=== PATIENT | female | born 1970 | race Caucasian/White ===

== ENCOUNTER → 2017-01-16 | Outpatient (CLI) | payer BC ==
[~2017-01-16] MED LIST: ESCI10TA17 PO; LORA-741 PO
[2017-01-16 14:39] LABS: BASO ABS # 0.08 K/uL (0-0.2); COMPLETE YES; EOS % 3.3 %; HEMATOCRIT 40.3 % (37-47); IG% 0.3 %; LYMPH % 27.1 %; LYMPH ABS # 2.14 K/uL (1.2-3.4); MEAN CELL VOLUME 92.2 fL (80-100); MEAN CORPUSCULAR HEMOGLOBIN 31.1 pg (25-34); MEAN CORPUSCULAR HGB CONC 33.7 g/dl (32-36); MEAN PLATELET VOLUME 10.1 fL (7.4-10.4); MONO % 6.5 %; NEUT % 61.8 %; PLATELET COUNT 332 K/uL (130-400); RED BLOOD COUNT 4.37 M/uL (4.2-5.4); WHITE BLOOD COUNT 7.89 K/uL (4.8-10.8)
[2017-01-16 14:48] LABS: ALT/SGPT 26 U/L (12-78); BLOOD UREA NITROGEN 12 mg/dl (7-18); BUN/CREATININE RATIO 14.3 (10-20); CALCIUM 9.3 mg/dl (8.5-10.1); CARBON DIOXIDE 31 mmol/L (21-32); CHLORIDE 106 mmol/L (98-107); CREATININE 0.87 mg/dl (0.60-1.20); GLUCOSE 97 mg/dl (70-99); POTASSIUM 3.5 mmol/L (3.5-5.1); SODIUM 143 mmol/L (136-145)
[2017-01-16 14:58] LABS: ALB/GLOB RATIO 0.9 (0.9-2); ALKALINE PHOSPHATASE 89 U/L (45-117); AST/SGOT 20 U/L (15-37); FERRITIN 39.1 ng/ml (8.0-388.0); PHOSPHORUS 3.6 mg/dl (2.5-4.9); THYROID STIMULATING HORMONE 0.928 uIu/ml (0.300-4.500)
--- NOTE | 2017-01-22 13:25 | CODING QUERY MEDICAL NECESSITY ---
SUPPORTING DIAGNOSIS NEEDED A supporting diagnosis is required for the test/procedure performed on this patient in order for us to be reimbursed by the patient's insurance. Please provide a supporting diagnosis for the following test/procedure listed below next to the test name along with your signature. *If there is no additional diagnosis for this patient that would support the following test/procedure please document that below next to the test/procedure. Test(s)/Procedure(s) that require a supporting diagnosis: DOS 01/16 * Vitamin D DIAGNOSIS: * Iron DIAGNOSIS: Provider Signature: Date: Thank you Tisha Mendoza Health Information Management Once completed, please kindly fax back to [phone] For questions please call [phone]
== END | disposition home or self-care (01) ==
LOC: C.LABBC 12:08
PROVIDERS: ATTEND Internal Medicine Geriatric Medicine
DX: R53.83 Other fatigue (principal)

== ENCOUNTER → 2017-02-13 | Outpatient (CLI) | payer BC ==
--- NOTE | 2017-02-13 10:16 | DIAGNOSTIC IMAGING REPORT ---
ULTRASOUND ABDOMEN COMPLETE CLINICAL HISTORY: Generalized abdominal pain. COMPARISON STUDY: Abdominal ultrasound dated 12/23/2014. TECHNIQUE: Real-time, grayscale, and color flow sonography of the abdomen was performed. Images are reviewed in the transverse and longitudinal planes. FINDINGS: Liver: The liver is normal in size and slightly heterogeneous in echotexture. There is no intrahepatic biliary ductal dilatation. The main portal vein is patent. Gallbladder: The gallbladder is normal in appearance. No gallstones are identified. There is no gallbladder wall thickening or pericholecystic fluid. A sonographic Hughes's sign is reportedly absent. The common bile duct measures up to 0.4 cm in diameter. Pancreas: Visualized portions of the pancreatic head and body are normal in appearance. Spleen: The spleen is normal in size and echotexture, measuring 11.3 cm in length. Kidneys: The kidneys are normal in size and echotexture. There is no hydronephrosis. The right kidney measures 10.2 cm in length and the left kidney measures 11.2 cm in length. No shadowing calculi are identified. Abdominal vasculature: Visualized portions of the abdominal aorta and IVC are normal in appearance. Ascites: None. IMPRESSION: Unremarkable sonographic assessment of the abdomen. Electronically signed by: Ibrahima Montaño M.D. 02/13/2017 10:14 AM Dictated Date/Time: 02/13/2017 10:13 AM
== END | disposition home or self-care (01) ==
LOC: C.ULTR 09:21
PROVIDERS: ATTEND Internal Medicine Geriatric Medicine
DX: R10.9 Unspecified abdominal pain (principal)

== ENCOUNTER → 2017-09-11 | Outpatient (CLI) | payer BC ==
--- NOTE | 2017-09-11 15:31 | MAMMOGRAPHY REPORT ---
BILATERAL DIGITAL SCREENING MAMMOGRAM TOMOSYNTHESIS WITH CAD: 09/11/2017 CLINICAL HISTORY: Routine screening. TECHNIQUE: Breast tomosynthesis in addition to standard 2D mammography was performed. Current study was also evaluated with a Computer Aided Detection (CAD) system. COMPARISON: Comparison is made to exams dated: 05/16/2016 mammogram, 01/06/2015 mammogram, 11/05/2013 m ammogram, 08/27/2012 mammogram, 05/15/2010 mammogram, and 11/30/2013 mammogram - [facility]. BREAST COMPOSITION: The tissue of both breasts is almost entirely fatty. FINDINGS: No suspicious masses, calcifications, or areas of architectural distortion are noted in ei ther breast. There has been no significant interval change compared to prior exams. IMPRESSION: ACR BI-RADS CATEGORY 1: NEGATIVE There is no mammographic evidence of malignancy. A 1 year screening mammogram is recommended. The pa tient will receive written notification of the results. Approximately 10% of breast cancers are not detected with mammography. A negative mammographic report should not delay biopsy if a clinically suggestive mass is present. Jaimee Mireles M.D. /:09/11/2017 14:39:46 Business Development Analyst: Heydi BETTS(Floresita)(M), [facility] letter sent: Normal 1/2 BI-RADS Code: ACR BI-RADS Category 1: Negative
== END | disposition home or self-care (01) ==
LOC: C.MAMM 11:07
PROVIDERS: ATTEND Internal Medicine Geriatric Medicine
DX: Z12.31 Encounter for screening mammogram for malignant neoplasm of breast (principal)

== ENCOUNTER 2024-06-14 02:04 | Inpatient (IN) ==
[2024-06-14] MEDS: FAMOTIDINE 20MG IV PUSH 20 MG/5 ML SYR IV STA (02:43)
[2024-06-14] MEDS: MoRPHine SULFATE 4 MG/ML 1 ML CARP\\VIAL IV STA (02:43)
[2024-06-14 03:10] LABS: Basophils # (auto) 0.07 K/uL (0.00-0.20); Basophils % (auto) 0.9 %; Eosinophils # (auto) 0.28 K/uL (0.00-0.50); Eosinophils % (auto) 3.4 %; Hemoglobin 13.6 g/dl (12.0-16.0); Immature Granulocytes # (auto) 0.02 K/uL (0.01-0.20); Immature Granulocytes % (auto) 0.2 %; Lymphocytes # (auto) 2.24 K/uL (1.20-3.40); Lymphocytes % (auto) 27.6 %; Mean Corpuscular Hgb Conc 33.2 g/dL (32.0-36.0); Mean Corpuscular Volume 93.4 fL (80.0-100.0); Mean Platelet Volume 10.1 fL (9.4-12.4); Monocytes # (auto) 0.43 K/uL (0.11-0.59); Monocytes % (auto) 5.3 %; Neutrophils # (auto) 5.09 K/uL (1.40-6.50); Neutrophils % (auto) 62.6 %; Platelet Count 242 K/uL (130-400); RDW Coefficient of Variation 12.3 % (11.5-14.5); RDW Standard Deviation 42.9 fL (36.4-46.3); Red Blood Count 4.39 M/uL (4.20-5.40); White Blood Count 8.13 K/ul (4.8-10.8)
[2024-06-14 03:21] LABS: Albumin Globulin Ratio 1.4 (0.9-2); Albumin Level 4.2 gm/dl (3.4-5.0); BUN Creatinine Ratio 10.3 (10-20); Bilirubin,Total 0.6 mg/dl (0.2-1.0); Creatinine Clr Calc Pharmacy 90.8 ml/min; Est GFR (African American) 88.2 ml/min; Est GFR (Non-African American) 76.1 ml/min; Globulin 2.9 gm/dl (2.5-4.0); Potassium 2.9 mmol/L (3.5-5.1); Total Protein 7.1 gm/dl (6.0-8.3)
[2024-06-14] MEDS: POTASSIUM CHLORIDE CRTAB 20 MEQ TABCR PO STA ×2 (03:40→05:46)
[2024-06-14 03:47] LABS: D Dimer 2390 ug/L FEU (0-500)
[2024-06-14 03:52] LABS: Troponin I High Sensitivity 303.7 pg/ml (0-14)
--- NOTE | 2024-06-14 04:02 | Emergency Department Note ---
Impression & Plan Non-ST elevated myocardial infarction (non-STEMI), Syncope, Morbid obesity with body mass index (BMI) of 40.0 or higher ED Provider Note CHIEF COMPLAINT: chest pain HISTORY OF PRESENT ILLNESS: This 53 yo female patient with past medical history of metabolic syndrome, hypertriglyceridemia, prediabetes, hypertension, trigeminal neuralgia, anxiety, obesity presents to the emergency department with complaints of substernal chest pressure. Patient states the pain radiates to her mid back. She had some discomfort down the left arm as well. Patient states she was just lying in bed when the symptoms began. She took 4 baby aspirin prior to coming to the hospital. She did get a nitroglycerin spray with a subsequent syncopal episode in the ambulance. Patient's heart rate and blood pressure dropped and EMS then administered 1 mg of atropine with improvement. Patient states she feels well at this time however some CP remains. patient admits she has had a very stressful week. She was babysitting her 2 young grandson children that are 6 months and 3 years while the parents were on vacation. She does have an autistic son with OCD at home with her as well. She also states she had a burger and fries for lunch just prior to the onset of symptoms. She does still have her gallbladder. REVIEW OF SYSTEMS: A review of systems was performed with positives and pertinent negatives listed in the history of present illness. 10 systems were reviewed and are otherwise negative. ALLERGIES: see below MEDICATIONS: see below PMH: see below SOCIAL HISTORY: see below DDx: Acute coronary syndrome, GERD, peptic ulcer disease, pancreatitis, cholecystitis among others. PHYSICAL EXAM: Vital signs reviewed. General: Well-appearing 53-year-old female, in no significant distress. HEENT: No scleral icterus, PERRLA, neck supple. moist mucous membranes Cardiovascular: Regular rate and rhythm, no extra sounds. Pulmonary: Clear to auscultation bilaterally, normal work of breathing. Abdomen: Soft, obese, nontender, nondistended, positive bowel sounds. Musculoskeletal: Atraumatic, no peripheral edema. Neurologic: Patient awake alert and oriented x 3, speech is clear Skin: Warm, dry, no rash EMERGENCY DEPARTMENT COURSE/MDM: this patient was evaluated and appeared to be in no significant distress. IV access was obtained and laboratory work was drawn. Patient did receive aspirin prior to EMS arrival, and then 1 nitroglycerin spray with a subsequent syncopal episode. She was given atropine which likely explains her tachycardia at this time. Laboratory work is significant for an elevation of the high-sensitivity troponin at 303.7 as well as elevated D-dimer of 2300. CT angiogram of the chest was performed and reveals no evidence of PE or dissection. Second troponin was performed and is rising at 504.7. Patient did receive IV acetaminophen, IV Pepcid. IV heparin drip was ordered as it appears the patient has suffered from a non-STEMI. Case was discussed with Dr. Saba of the hospitalist service who has agreed to evaluate the patient for admission and further management. MONITORING: An order for cardiac monitoring was placed and the patient is noted to be in a normal sinus rhythm at 90 beats per minute. RADIOLOGY: chest x-ray to my interpretation reveals no focal lung consolidation or failure. CTA of the chest: IMPRESSION: 1. Accounting for respiratory artifact, there is no definite evidence for pulmonary embolism. 2. No definite focal airspace consolidation. No pleural effusion or pneumothorax. EKG:To my interpretation reveals sinus tachycardia at 170 bpm. Old anterior infarct with ST depressions in the lateral leads. QTc of 483. No PVC, no PAC. DISPOSITION: Admission Past Med/Surg History Problem List (Updated 06/15/24 @ 00:27 by Puja Christensen MD) Morbid obesity with body mass index (BMI) of 40.0 or higher (Acute) Syncope (Acute) Non-ST elevated myocardial infarction (non-STEMI) (Acute) Hypokalemia Elevated troponin Chest pain UTI (urinary tract infection) Tachycardia Metabolic syndrome Hypertriglyceridemia Prediabetes Obesity (BMI 30-39.9) Abnormal brain MRI TMJ (temporomandibular joint disorder) Hypertension Vitamin D deficiency Actinic keratosis Hepatic steatosis Trigeminal neuralgia of left side of face Neuralgia Cholelithiasis Hypertensive response to exercise Anxiety (Acute) Dizzy spells (Acute) Medical History (Updated 06/15/24 @ 00:27 by Puja Christensen MD) Hyperglycemia Candidal intertrigo Arthralgia of multiple sites Acholic stool Cyst of ovary (10/13/12) Surgical History [facility] History of appendectomy (10/13/12) H/O dilation and curettage (10/13/12) Family History Mother Diabetes Uterine cancer Grandfather (Paternal) Myocardial infarction Father Hypertension Denies family history of Ovarian cancer Prostate cancer Breast cancer Lung cancer Colorectal cancer Stroke Social History Smoking Status: Never smoker Second Hand Exposure: No; Do You Dip or Chew Tobacco: No; Hx Alcohol Use: No Hx Substance Use: No Preferred Language: [place] Communication Ability: Effective Visual Impairment: Limited Hearing Ability: Normal Extension Associate Required: No Beliefs That Will Affect Care: Hoahaoism Hoahaoism Beliefs: Adventism marital status: Current Living Situation: Spouse current occupational status: unemployed How many Children do You have: 4 Other Information That Helps Us Care for You: No Feels Safe at Home: Yes Safety Concerns: Feels Safe At This Time Childhood Exposure to Second-Hand Smoke: No caffeine: Yes Dental Care, Regularly: Yes Physical Activity Frequency: Daily Seatbelt Use: always Sunscreen Use: Yes Assistive Devices: Glasses Allergies Allergies Allergy/AdvReac Type Severity Reaction Status Date / Time Bactrim Allergy Unknown STIFF NECK Verified 02/02/16 12:18 clindamycin Allergy Unknown Redness of Verified 06/14/24 02:35 Skin Penicillins Allergy Unknown Rash Verified 06/14/24 02:35 sulfamethoxazole Allergy Unknown STIFF NECK Verified 06/14/24 02:35 trimethoprim Allergy Unknown STIFF NECK Verified 06/14/24 02:35 prednisone Allergy Rash Verified 06/14/24 02:35 Tetracyclines AdvReac Mild doxy ok. Verified 06/14/24 02:35 erythromycin base AdvReac Unknown GI Verified 06/14/24 02:35 Home Meds Home Medications Medication Instructions Recorded Confirmed acetaminophen 325 mg capsule 325 - 650 mg PO QID PRN Pain 09/19/20 06/14/24 (Tylenol) ibuprofen 200 mg tablet (Advil) 200 mg PO Q6H PRN Pain 09/19/20 06/14/24 cetirizine 10 mg tablet 5 mg PO HS 06/14/24 06/14/24 hydrochlorothiazide 12.5 mg tablet 12.5 mg PO DAILY PRN swelling 06/14/24 06/14/24 Previous Rx's Medication Instructions Recorded buspirone 5 mg tablet 5 mg PO TID PRN anxiety #90 tabs 12/12/22 cholecalciferol (vitamin D3) 10 30 mcg (3 x 10 mcg (400 unit)) PO 04/02/23 mcg (400 unit) chewable tablet DAILY #270 tabs nebivolol 5 mg tablet (Bystolic) 5 mg PO DAILY #30 tabs 05/20/24 Results & Data (ED) Vital Signs Vital Signs - 24 hr 06/14/24 01:53 06/14/24 02:10 06/14/24 02:11 Temperature 36.9 C Temperature Source Oral Pulse Rate 97 H 108 H Pulse Rate [Apical] Pulse Rhythm Regular Pulse Rhythm [Apical] Pulse Strength Normal Pulse Strength [Apical] Respiratory Rate 19 Respiratory Effort / Characteristics Non-Labored Spontaneous Respiratory Depth Normal Respiratory Pattern Regular Blood Pressure 146/99 H Blood Pressure [Right Arm] Blood Pressure Mean 114 Blood Pressure Mean [Right Arm] Blood Pressure Position Lying Blood Pressure Position [Right Arm] Pulse Oximetry 98 95 Oxygen Delivery Method Room Air Room Air Sepsis Recent Fever Within 48 Hours No Sepsis New/Unexplained Change in Mental Status N/A Sepsis Action Taken by Nursing No Action Required 06/14/24 02:30 06/14/24 04:00 Temperature Temperature Source Pulse Rate 98 H Pulse Rate [Apical] 100 H Pulse Rhythm Pulse Rhythm [Apical] Regular Pulse Strength Pulse Strength [Apical] Normal Respiratory Rate 18 20 Respiratory Effort / Characteristics Non-Labored Spontaneous Respiratory Depth Normal Respiratory Pattern Regular Blood Pressure Blood Pressure [Right Arm] 160/89 H Blood Pressure Mean Blood Pressure Mean [Right Arm] 112 Blood Pressure Position Blood Pressure Position [Right Arm] Lying Pulse Oximetry 96 97 Oxygen Delivery Method Room Air Room Air Sepsis Recent Fever Within 48 Hours Sepsis New/Unexplained Change in Mental Status Sepsis Action Taken by Usp Medications Current Medication List: was personally reviewed by me Laboratory Data Attestation: I reviewed the patient's lab results. 06/14/24 02:15 06/14/24 02:15 Lab Results 06/14/24 06/14/24 Range/Units 02:15 04:27 WBC 8.13 (4.8-10.8) K/ul RBC 4.39 (4.20-5.40) M/uL Hgb 13.6 (12.0-16.0) g/dl Hct 41.0 (37.0-47.0) % MCV 93.4 (80.0-100.0) fL MCH 31.0 (25.0-34.0) pg MCHC 33.2 (32.0-36.0) g/dL RDW Std Deviation 42.9 (36.4-46.3) fL RDW Coeff of Carlos A 12.3 (11.5-14.5) % Plt Count 242 (130-400) K/uL MPV 10.1 (9.4-12.4) fL Immature Gran % (Auto) 0.2 % Neut % (Auto) 62.6 % Lymph % (Auto) 27.6 % Cache % (Auto) 5.3 % Eos % (Auto) 3.4 % Baso % (Auto) 0.9 % Neut # (Auto) 5.09 (1.40-6.50) K/uL Lymph # (Auto) 2.24 (1.20-3.40) K/uL Cache # (Auto) 0.43 (0.11-0.59) K/uL Eos # (Auto) 0.28 (0.00-0.50) K/uL Baso # (Auto) 0.07 (0.00-0.20) K/uL Immature Gran # (Auto) 0.02 (0.01-0.20) K/uL PT 11.0 (9.0-12.0) Seconds INR 1.0 (0.9-1.1) APTT 20 L (21-31) Seconds PTT Ratio 0.7 D-Dimer 2390 H* (0-500) ug/L FEU Sodium 138 (136-145) mmol/L Potassium 2.9 L (3.5-5.1) mmol/L Chloride 105 (98-107) mmol/L Carbon Dioxide 23 (21-32) mmol/L Anion Gap 10 (3-11) BUN 9 (6-23) mg/dl Creatinine 0.87 (0.6-1.2) mg/dl Est Cr Clr Drug Dosing 90.8 ml/min Est GFR ( Amer) 88.2 ml/min Est GFR (Non-Af Amer) 76.1 ml/min BUN/Creatinine Ratio 10.3 (10-20) Glucose 124 H (70-99(Fasting)) mg/dl Calcium 9.0 (8.6-10.3) mg/dl Phosphorus 2.8 (2.5-4.9) mg/dl Magnesium 1.9 (1.7-2.4) mg/dl Total Bilirubin 0.6 (0.2-1.0) mg/dl AST 25 (13-39) U/L ALT 14 (7-52) U/L Alkaline Phosphatase 61 (34-104) U/L Troponin I High Sens 303.7 H* 504.7 H* D (0-14) pg/ml Total Protein 7.1 (6.0-8.3) gm/dl Albumin 4.2 (3.4-5.0) gm/dl Globulin 2.9 (2.5-4.0) gm/dl Albumin/Globulin Ratio 1.4 (0.9-2) Lipase 12 (11-82) U/L Administered Medications Cetirizine HCl (Cetirizine Hcl 10 Mg Tablet) 5 mg PO HS MARIAM Stop: 07/14/24 20:59 Last Admin: 06/14/24 23:07 Dose: 5 mg Documented By: LADARIUS Heparin Sodium/Dextrose (Heparin Sodium/Dextrose) 25,000 units in 500 mls @ 18 mls/hr IV .Q24H MARIAM; Protocol Stop: 07/14/24 05:44 Last Titration: 06/14/24 19:19 Dose: 900 units/hr, 18 mls/hr Documented By: WILMA Co-signed By: LADARIUS Titration: 06/14/24 15:03 Dose: 900 units/hr, 18 mls/hr Documented By: WILMA Co-signed By: BUNNY Admin: 06/14/24 05:51 Dose: 900 units/hr, 18 mls/hr Documented By: IDD Co-signed By: ROBERTO Discontinued Medications Heparin Sodium (Porcine) (Heparin Sod (Porcine) 1000 Unit/Ml) 1 units IV NOW ONE Stop: 06/14/24 05:41 Last Admin: 06/14/24 05:50 Dose: 4,000 units Documented By: IDD Co-signed By: ROBERTO Famotidine (Pepcid 20mg Iv Push) 20 mg in 5 mls @ 2.5 mls/min IV NOW STA Stop: 06/14/24 02:32 Last Admin: 06/14/24 02:43 Dose: 2.5 mls/min Documented By: CRAIG Ioversol (Optiray 320 125ml) 125 ml IV ONCE ONE Stop: 06/14/24 04:14 Last Admin: 06/14/24 04:13 Dose: 118 ml Documented By: BEN Lorazepam (Lorazepam 1 Mg/1 Ml Syr Ed Inj Use) 0.5 mg IV ONE STA Stop: 06/14/24 05:24 Last Admin: 06/14/24 05:49 Dose: 0.5 mg Documented By: CRAIG Morphine Sulfate (Morphine Sulfate 4 Mg/Ml 1 Ml Carp\Vial) 2 mg IV NOW STA Stop: 06/14/24 02:31 Last Admin: 06/14/24 02:43 Dose: Not Given Documented By: IDD Potassium Chloride (Potassium Chloride Crtab 20 Meq Tabcr) 40 meq PO NOW STA Stop: 06/14/24 03:24 Last Admin: 06/14/24 03:40 Dose: 40 meq Documented By: CRAIG Potassium Chloride (Potassium Chloride Crtab 20 Meq Tabcr) 40 meq PO NOW STA Stop: 06/14/24 05:15 Last Admin: 06/14/24 05:46 Dose: 40 meq Documented By: CRAIG Imaging Data Radiologist's Impression: Chest X-Ray 06/14/24 02:30 XR chest 1V portable CLINICAL HISTORY: Chest pain, nonspecific TECHNIQUE: Single frontal radiograph of the chest was obtained. Comparison: Comparison is made to chest radiograph 01/05/2021 FINDINGS: Exam is limited by underpenetration. The cardiomediastinal silhouette is normal. The lungs are clear. No evidence of pleural effusion or pneumothorax. IMPRESSION: No acute chest disease. ACT 112: Negative or not required by law. Electronically signed by: Tanmay Pelletier M.D. 06/14/2024 7:00 AM Chest CTA 06/14/24 03:47 Exam(s): CTA CHEST IV Amt: 118 ML OPTIRAY 320 EXAM: CT Angiography Chest With Intravenous Contrast CLINICAL HISTORY: Evaluate for PE. TECHNIQUE: Axial computed tomographic angiography images of the chest with intravenous contrast. CTDI is 28.14 mGy and DLP is 810.31 mGy-cm. Automated exposure control was utilized for the study. A dose lowering technique was utilized adhering to the principles of ALARA. MIP reconstructed images were created and reviewed. COMPARISON: CTA chest 08/09/2023 FINDINGS: Limitations: There is respiratory artifact, which degrades image quality on multiple image slices. Pulmonary arteries: Accounting for respiratory artifact, there is no definite evidence for pulmonary embolism. Aorta: No acute findings. No thoracic aortic aneurysm. Lungs: No definite focal airspace consolidation. Pleural space: Unremarkable. No significant effusion. No pneumothorax. Heart: Unremarkable. No cardiomegaly. No significant pericardial effusion. Bones/joints: No acute fracture. No dislocation. Soft tissues: Unremarkable. Lymph nodes: Unremarkable. No enlarged lymph nodes. IMPRESSION: 1. Accounting for respiratory artifact, there is no definite evidence for pulmonary embolism. 2. No definite focal airspace consolidation. No pleural effusion or pneumothorax. Electronically signed by: Khai Cheema MD 06/14/24 04:49 AM Discharge Plan Visit Data Chief Complaint: Chest Pain Stated Complaint: CHEST PRESSURE, SYNCOPAL ED Provider: Puja Christensen Discharge Problem: Non-ST elevated myocardial infarction (non-STEMI), Syncope, Morbid obesity with body mass index (BMI) of 40.0 or higher Patient Disposition: Admitted As Inpatient Discharge Instructions Interventions: ED Discharge Assessment Last Done: 06/14/24 13:06 Discharge Problem: Syncope Qualifiers: Syncope type: vasovagal syncope Qualified Code(s): R55 - Syncope and collapse
[2024-06-14] MEDS: OPTIRAY 320 125ml IV ONE (04:13)
[2024-06-14 04:26] LABS: Magnesium 1.9 mg/dl (1.7-2.4); Phosphorus 2.8 mg/dl (2.5-4.9)
[2024-06-14 04:34] LABS: Partial Thromboplastin Ratio 0.7; Partial Thromboplastin Time 20 Seconds (21-31)
--- NOTE | 2024-06-14 04:50 | CT Scan Report ---
Exam(s): CTA CHEST IV Amt: 118 ML OPTIRAY 320 EXAM: CT Angiography Chest With Intravenous Contrast CLINICAL HISTORY: Evaluate for PE. TECHNIQUE: Axial computed tomographic angiography images of the chest with intravenous contrast. CTDI is 28.14 mGy and DLP is 810.31 mGy-cm. Automated exposure control was utilized for the study. A dose lowering technique was utilized adhering to the principles of ALARA. MIP reconstructed images were created and reviewed. COMPARISON: CTA chest 08/09/2023 FINDINGS: Limitations: There is respiratory artifact, which degrades image quality on multiple image slices. Pulmonary arteries: Accounting for respiratory artifact, there is no definite evidence for pulmonary embolism. Aorta: No acute findings. No thoracic aortic aneurysm. Lungs: No definite focal airspace consolidation. Pleural space: Unremarkable. No significant effusion. No pneumothorax. Heart: Unremarkable. No cardiomegaly. No significant pericardial effusion. Bones/joints: No acute fracture. No dislocation. Soft tissues: Unremarkable. Lymph nodes: Unremarkable. No enlarged lymph nodes. IMPRESSION: 1. Accounting for respiratory artifact, there is no definite evidence for pulmonary embolism. 2. No definite focal airspace consolidation. No pleural effusion or pneumothorax. Electronically signed by: Khai Cheema MD 06/14/24 04:49 AM
--- NOTE | 2024-06-14 05:22 | History & Physical Report ---
Date of Service June 14, 2024 Assessment & Plan (1) Chest pain: Plan: 53yo female with HTN, Hypertriglyceridemia, obesity presenting with substernal chest discomfort. Patient with elevation of troponin 303.7 --> 504.7. EKG with non-specific changes. Concerning that patient had syncopal event following administration of Nitro spray. EKG does not have findings of posterior infarct. -Observation to PCU -Trend troponin to peak -Check 2D echo -Cardiology consultation appreciated -Heparin gtt initiated in the ER - caution with reported bloody BM -EKG as needed for chest pain -Supplemental O2 as needed -Will avoid Nitro due to episode of hypotension -Patient does not wish to take morphine because of possible side effects (2) Elevated troponin: Plan: Trend to peak Check 2D echo Cardiology consultation (3) Hypokalemia: Plan: Repleted - patient received 80mEq of potassium -Repeat BMP Plan Hypertension - was recently prescribed Nebivolol but patient has not started taking it yet Hold HCTZ Anxiety - Continue Buspirone History of Present Illness Chief Complaint: chest pain Primary Care Provider: Orly Hernandez MD Winifred Lomax is a 53yo female with history of HTN, Hypertriglyceridemia and gallstones presenting with chest pain. Patient reports she has been under a lot of family stress lately - she was watching her grandkids this weekend and has an adult son with autism that she cares for as well. Yesterday they went out to lunch in [facility] and she got a hamburger with fries and ice cream. After her meal she developed some diffuse abdominal pain then epigastric and chest discomfort with radiation into her left arm. She had nausea and several episodes of vomiting then developed the sensation of racing heart. She called her son who is a nurse- took a dose of Advil and her symptoms improved. She slept in today and woke up around noon. Around 13:00 she developed pain in her chest - described as substernal, severe, 10/10, stabbing with radiation into bilateral arms L > R, and into back between shoulder blades. She felt some palpitations as well and thought that she might pass out. She did have associated diaphoresis, dizziness and nausea as well. She had an episode of diarrhea which she reports had a small amount of blood in it as well. She took a Benadryl and Advil but her symptoms persisted so she called EMS. Patient was administered Nitro spray by EMS and subsequently passed out. She was given Atropine. Presently reports some ongoing mild substernal discomfort. Overall improved. She reports occasional exertional chest discomfort at home with climbing stairs. No prior ND Did have outpatient cardiac monitoring for palpitations - no arrhythmia identified. Allergies Allergy/AdvReac Type Severity Reaction Status Date / Time Bactrim Allergy Unknown STIFF NECK Verified 02/02/16 12:18 clindamycin Allergy Unknown Redness of Verified 06/14/24 02:35 Skin Penicillins Allergy Unknown Rash Verified 06/14/24 02:35 sulfamethoxazole Allergy Unknown STIFF NECK Verified 06/14/24 02:35 trimethoprim Allergy Unknown STIFF NECK Verified 06/14/24 02:35 prednisone Allergy Rash Verified 06/14/24 02:35 Tetracyclines AdvReac Mild doxy ok. Verified 06/14/24 02:35 erythromycin base AdvReac Unknown GI Verified 06/14/24 02:35 Home Medications Medication Instructions Recorded Confirmed Type acetaminophen 325 mg capsule 325 - 650 mg PO QID PRN Pain 09/19/20 06/14/24 History (Tylenol) ibuprofen 200 mg tablet (Advil) 200 mg PO Q6H PRN Pain 09/19/20 06/14/24 History buspirone 5 mg tablet 5 mg PO TID PRN anxiety #90 tabs 12/12/22 06/14/24 Rx cholecalciferol (vitamin D3) 10 30 mcg (3 x 10 mcg (400 unit)) PO 04/02/23 06/14/24 Rx mcg (400 unit) chewable tablet DAILY #270 tabs nebivolol 5 mg tablet (Bystolic) 5 mg PO DAILY #30 tabs 05/20/24 06/14/24 Rx cetirizine 10 mg tablet 5 mg PO HS 06/14/24 06/14/24 History hydrochlorothiazide 12.5 mg tablet 12.5 mg PO DAILY PRN swelling 06/14/2405/27 History Past Med/Surg History Problem List (Updated 06/14/24 @ 06:35 by Loni Saba DO) Hypokalemia Elevated troponin Chest pain UTI (urinary tract infection) Tachycardia Metabolic syndrome Hypertriglyceridemia Prediabetes Obesity (BMI 30-39.9) Abnormal brain MRI TMJ (temporomandibular joint disorder) Hypertension Vitamin D deficiency Actinic keratosis Hepatic steatosis Trigeminal neuralgia of left side of face Neuralgia Cholelithiasis Hypertensive response to exercise Anxiety (Acute) Dizzy spells (Acute) Medical History Cyst of ovary (10/13/12) Surgical History S/[place] [facility]ARD[facility] [place] History of appendectomy (10/13/12) H/O dilation and curettage (10/13/12) Family History Mother Diabetes Uterine cancer Grandfather (Paternal) Myocardial infarction Father Hypertension Denies family history of Ovarian cancer Prostate cancer Breast cancer Lung cancer Colorectal cancer Stroke Social History Smoking Status: Never smoker Second Hand Exposure: No; Do You Dip or Chew Tobacco: No; Hx Alcohol Use: No Hx Substance Use: No Preferred Language: Danish Communication Ability: Effective Visual Impairment: Limited Hearing Ability: Normal Picture Engraver Required: No marital status: Current Living Situation: Spouse current occupational status: unemployed How many Children do You have: 4 Feels Safe at Home: Yes Childhood Exposure to Second-Hand Smoke: No caffeine: Yes Dental Care, Regularly: Yes Physical Activity Frequency: Daily Seatbelt Use: always Sunscreen Use: Yes Review of Systems Review of Systems: All systems reviewed & are unremarkable except as noted in HPI & below Physical Exam Physical Exam: General: patient resting comfortably, NAD, non-toxic in appearance, AA&O x 4, anxious Skin: warm, dry, intact, no rashes or lesions HEENT: NC/AT, PERRL, EOMI, anicteric sclera, conjunctiva without injection, external ear normal to inspection and nontender, nares patent, moist mucus membranes, dentition intact, no oropharyngeal lesions, neck supple, trachea midline, no LAD, no thyromegaly, no JVD Heart: +S1/S2, regular, no m/r/g, +chest wall tenderness with palpation Lungs: equal air entry bilaterally, no rales/rhonchi/wheezes Abd: +BS, soft, NT/ND, no masses/organomegaly/ascites Ext: warm, 2+ pulses in UE/LE bilaterally, no clubbing/cyanosis or edema Neuro: nonfocal, patient AA&O x 4, speech intact, no facial droop, moving all extremities on command with equal strength 5/5 Results & Data Results & Data Vital Signs (Past 12 Hours) Vital Signs Temp Pulse Pulse Resp BP BP Pulse Ox 06/14/24 04:00 100 H 20 160/89 H 97 06/14/24 02:30 98 H 18 96 06/14/24 02:11 108 H 06/14/24 02:10 36.9 C 97 H 19 146/99 H 95 06/14/24 01:53 98 O2 Del Method 06/14/24 04:00 Room Air 06/14/24 02:30 Room Air 06/14/24 02:11 06/14/24 02:10 Room Air 06/14/24 01:53 Room Air Laboratory Results Laboratory Results WBC 8.13 K/ul (4.8-10.8) 06/14/24 02:15 RBC 4.39 M/uL (4.20-5.40) 06/14/24 02:15 Hgb 13.6 g/dl (12.0-16.0) 06/14/24 02:15 Hct 41.0 % (37.0-47.0) 06/14/24 02:15 MCV 93.4 fL (80.0-100.0) 06/14/24 02:15 MCH 31.0 pg (25.0-34.0) 06/14/24 02:15 MCHC 33.2 g/dL (32.0-36.0) 06/14/24 02:15 RDW Std Deviation 42.9 fL (36.4-46.3) 06/14/24 02:15 RDW Coeff of Carlos A 12.3 % (11.5-14.5) 06/14/24 02:15 Plt Count 242 K/uL (130-400) 06/14/24 02:15 MPV 10.1 fL (9.4-12.4) 06/14/24 02:15 Immature Gran % (Auto) 0.2 % 06/14/24 02:15 Neut % (Auto) 62.6 % 06/14/24 02:15 Lymph % (Auto) 27.6 % 06/14/24 02:15 [place] % (Auto) 5.3 % 06/14/24 02:15 Eos % (Auto) 3.4 % 06/14/24 02:15 Baso % (Auto) 0.9 % 06/14/24 02:15 Neut # (Auto) 5.09 K/uL (1.40-6.50) 06/14/24 02:15 Lymph # (Auto) 2.24 K/uL (1.20-3.40) 06/14/24 02:15 [place] # (Auto) 0.43 K/uL (0.11-0.59) 06/14/24 02:15 Eos # (Auto) 0.28 K/uL (0.00-0.50) 06/14/24 02:15 Baso # (Auto) 0.07 K/uL (0.00-0.20) 06/14/24 02:15 Immature Gran # (Auto) 0.02 K/uL (0.01-0.20) 06/14/24 02:15 PT 11.0 Seconds (9.0-12.0) 06/14/24 02:15 INR 1.0 (0.9-1.1) 06/14/24 02:15 APTT 20 Seconds (21-31) L 06/14/24 02:15 PTT Ratio 0.7 06/14/24 02:15 D-Dimer 2390 ug/L FEU (0-500) H* 06/14/24 02:15 Sodium 138 mmol/L (136-145) 06/14/24 02:15 Potassium 2.9 mmol/L (3.5-5.1) L 06/14/24 02:15 Chloride 105 mmol/L (98-107) 06/14/24 02:15 Carbon Dioxide 23 mmol/L (21-32) 06/14/24 02:15 Anion Gap 10 (3-11) 06/14/24 02:15 BUN 9 mg/dl (6-23) 06/14/24 02:15 Creatinine 0.87 mg/dl (0.6-1.2) 06/14/24 02:15 Est Cr Clr Drug Dosing 90.8 ml/min 06/14/24 02:15 Est GFR ( Amer) 88.2 ml/min 06/14/24 02:15 Est GFR (Non-Af Amer) 76.1 ml/min 06/14/24 02:15 BUN/Creatinine Ratio 10.3 (10-20) 06/14/24 02:15 Glucose 124 mg/dl (70-99(Fasting)) H 06/14/24 02:15 Calcium 9.0 mg/dl (8.6-10.3) 06/14/24 02:15 Phosphorus 2.8 mg/dl (2.5-4.9) 06/14/24 02:15 Magnesium 1.9 mg/dl (1.7-2.4) 06/14/24 02:15 Total Bilirubin 0.6 mg/dl (0.2-1.0) 06/14/24 02:15 AST 25 U/L (13-39) 06/14/24 02:15 ALT 14 U/L (7-52) 06/14/24 02:15 Alkaline Phosphatase 61 U/L (34-104) 06/14/24 02:15 Troponin I High Sens 504.7 pg/ml (0-14) H* D 06/14/24 04:27 Total Protein 7.1 gm/dl (6.0-8.3) 06/14/24 02:15 Albumin 4.2 gm/dl (3.4-5.0) 06/14/24 02:15 Globulin 2.9 gm/dl (2.5-4.0) 06/14/24 02:15 Albumin/Globulin Ratio 1.4 (0.9-2) 06/14/24 02:15 Lipase 12 U/L (11-82) 06/14/24 02:15 Impressions Chest CTA 06/14/24 03:47 Exam(s): CTA CHEST IV Amt: 118 ML OPTIRAY 320 EXAM: CT Angiography Chest With Intravenous Contrast CLINICAL HISTORY: Evaluate for PE. TECHNIQUE: Axial computed tomographic angiography images of the chest with intravenous contrast. CTDI is 28.14 mGy and DLP is 810.31 mGy-cm. Automated exposure control was utilized for the study. A dose lowering technique was utilized adhering to the principles of ALARA. MIP reconstructed images were created and reviewed. COMPARISON: CTA chest 08/09/2023 FINDINGS: Limitations: There is respiratory artifact, which degrades image quality on multiple image slices. Pulmonary arteries: Accounting for respiratory artifact, there is no definite evidence for pulmonary embolism. Aorta: No acute findings. No thoracic aortic aneurysm. Lungs: No definite focal airspace consolidation. Pleural space: Unremarkable. No significant effusion. No pneumothorax. Heart: Unremarkable. No cardiomegaly. No significant pericardial effusion. Bones/joints: No acute fracture. No dislocation. Soft tissues: Unremarkable. Lymph nodes: Unremarkable. No enlarged lymph nodes. IMPRESSION: 1. Accounting for respiratory artifact, there is no definite evidence for pulmonary embolism. 2. No definite focal airspace consolidation. No pleural effusion or pneumothorax. Electronically signed by: Khai Cheema MD 06/14/24 04:49 AM ECG Additional Comments: EKG with ST at 107bpm, normal axis, OT=669, QRS=84, ABj=985, some non-specific T wave changes, no ST elevations PG Care Time/CCT Total # of Minutes Spent Total Time Spent with Patient: Total time spent is greater than 50% in coordination of care (as documented) at patient's floor/unit and/or counseling patient: Coding Level of Care Code 38859 INT INP/OBS CARE 2/55MIN Diagnoses Chest pain R07.9 Elevated troponin R79.89 Hypokalemia E87.6
[2024-06-14] MEDS ORDERED: Heparin IV Adult Wt-Based Low-Dose w/ INITIAL Bolus Protocol IV STA (05:24)
[2024-06-14] MEDS: LORazepam 1 MG/1 ML SYR ED Inj Use IV STA (05:49)
[2024-06-14] MEDS: HEPARIN SOD (PORCINE) 1000 UNIT/ML IV ONE (05:50)
[2024-06-14] MEDS: HEPARIN SODIUM/DEXTROSE 25,000 UNITS/500 ML BAG IV SCH (05:51)
--- NOTE | 2024-06-14 07:02 | XRay Report ---
XR chest 1V portable CLINICAL HISTORY: Chest pain, nonspecific TECHNIQUE: Single frontal radiograph of the chest was obtained. Comparison: Comparison is made to chest radiograph 01/05/2021 FINDINGS: Exam is limited by underpenetration. The cardiomediastinal silhouette is normal. The lungs are clear. No evidence of pleural effusion or pneumothorax. IMPRESSION: No acute chest disease. ACT 112: Negative or not required by law. Electronically signed by: Tanmay Pelletier M.D. 06/14/2024 7:00 AM
--- NOTE | 2024-06-14 09:14 | Electrocardiogram Report ---
Test Reason : Blood Pressure : */* mmHG Vent. Rate : 107 BPM Atrial Rate : 107 BPM P-R Int : 174 ms QRS Dur : 84 ms QT Int : 362 ms P-R-T Axes : 37 5 19 degrees QTcB Int : 483 ms Sinus tachycardia Possible Old Anterior infarct (cited on or before 20-May-2024) ST depression in Lateral leads , consider ischemia Abnormal ECG When compared with ECG of 20-May-2024 13:24, Vent. rate has increased by [address] depression in Lateral leads now present Confirmed by Carlos Enrique Mojica ([id number]) on 06/14/2024 9:14:31 AM Referred By: REFERRED SELF Confirmed By: Carlos Enrique Mojica
[2024-06-14] MEDS ORDERED: busPIRone 5 MG TAB PO PRN (09:30)
[2024-06-14] MEDS ORDERED: ONDANSETRON INJ 2 MG/ML 2 ML VIAL IV PRN (09:30)
--- NOTE | 2024-06-14 13:29 | XCELERA ---
[id number]
--- NOTE | 2024-06-14 14:43 | Cardiology Consultation ---
Date of Consultation June 14, 2024 Assessment & Plan (1) Chest pain: (2) Elevated troponin: (3) Tachycardia: (4) Hypertriglyceridemia: (5) Prediabetes: (6) Obesity (BMI 30-39.9): (7) Hypertension: (8) Cholelithiasis: Plan 53-year-old woman with several vascular risk factors (surgical menopause, family history, HTN, prediabetes, elevated BMI) who experienced multiple episodes of chest pain over the past 48 hours. Although her initial symptoms were almost certainly secondary to cholelithiasis given occurrence after dietary indiscretion, this would not explain her potentially ischemic ECG findings and elevated troponin. Perhaps there is a secondary effect whereby hypertension and tachycardia induced some degree of ischemia, raising the possibility of occlusive coronary artery disease. Would be reluctant to proceed to stress study given the most recent chest pain episode occurred at rest overnight and did not seem to be precipitated by dietary indiscretion. Would continue heparin, she should receive loading dose of aspirin (325 mg) as well (there was some concern about potential GI bleeding but her hemoglobin is normal and the story was not compelling, the aspirin could be given with meal). Would add a low-dose of beta-nilo as well to help prevent tachycardia and address mild hypertension. Further recommendations based on cardiac catheterization results (study planned for tomorrow). History of Present Illness Reason for Consultation: chest pain, elevated troponin Requesting Physician: Mark Reed Attending Physician: Mark Reed History of Present Illness 53-year-old woman with no prior cardiac history and modest vascular risk factors admitted earlier today after several episodes of severe chest pain in the past few days, abnormal ECG, and moderately elevated troponin. Medical history notable for anxiety neurosis, hypertension, hypertriglyceridemia, and cholelithiasis. At recent baseline, she is modestly physically active with no exertional symptoms, other than occasional tachypalpitations (for which recent workup was negative). She does have episodes of nausea and vomiting after fatty meals, this happens fairly routinely. A couple days ago, after a hamburger/fries/ice cream she developed abdominal and epigastric pain with vomiting followed by chest pain rating to her left arm. She took Advil and symptoms improved after an hour or so. She felt well, but last evening she developed 10/10 substernal chest pain radiating to both arms and shoulder blades associated with tachypalpitations, diaphoresis, nausea, and presyncope. EMS was called, she received sublingual nitroglycerin and had a syncopal episode which required atropine. Her chest discomfort abated, however ECG showed sinus tachycardia 107 bpm with mild lateral ST depression and troponin bruce from 300 to 500. Echocardiogram was unremarkable. Vascular risk factors reviewed: Father had valve repair with CABG in his 60s Non-smoker Elevated BMI Hypertension, on medication Hypertriglyceridemia (323), otherwise favorable lipid profile (cholesterol/HDL ratio 3.7) No regular exercise Mild hyperglycemia (hemoglobin A1c 5.7%) Surgical menopause, remote JERARDO/BSO She was comfortable and had no somatic complaints at the time my evaluation earlier this afternoon. Allergies Allergy/AdvReac Type Severity Reaction Status Date / Time Bactrim Allergy Unknown STIFF NECK Verified 02/02/16 12:18 clindamycin Allergy Unknown Redness of Verified 06/14/24 02:35 Skin Penicillins Allergy Unknown Rash Verified 06/14/24 02:35 sulfamethoxazole Allergy Unknown STIFF NECK Verified 06/14/24 02:35 trimethoprim Allergy Unknown STIFF NECK Verified 06/14/24 02:35 prednisone Allergy Rash Verified 06/14/24 02:35 Tetracyclines AdvReac Mild doxy ok. Verified 06/14/24 02:35 erythromycin base AdvReac Unknown GI Verified 06/14/24 02:35 Home Medications Medication Instructions Recorded Confirmed Type acetaminophen 325 mg capsule 325 - 650 mg PO QID PRN Pain 09/19/20 06/14/24 History (Tylenol) ibuprofen 200 mg tablet (Advil) 200 mg PO Q6H PRN Pain 09/19/20 06/14/24 History buspirone 5 mg tablet 5 mg PO TID PRN anxiety #90 tabs 12/12/22 06/14/24 Rx cholecalciferol (vitamin D3) 10 30 mcg (3 x 10 mcg (400 unit)) PO 04/02/23 06/14/24 Rx mcg (400 unit) chewable tablet DAILY #270 tabs nebivolol 5 mg tablet (Bystolic) 5 mg PO DAILY #30 tabs 05/20/24 06/14/24 Rx cetirizine 10 mg tablet 5 mg PO HS 06/14/24 06/14/24 History hydrochlorothiazide 12.5 mg tablet 12.5 mg PO DAILY PRN swelling 06/14/24 06/14/24 History Patient History Medical History (Updated 06/14/24 @ 13:54 by Carlos Enrique Mojica MD) Hyperglycemia Candidal intertrigo Arthralgia of multiple sites Acholic stool Cyst of ovary (10/13/12) Surgical History S/P JERARDO-BSO [facility] [place] History of appendectomy (10/13/12) H/O dilation and curettage (10/13/12) Family History Mother Diabetes Uterine cancer Grandfather (Paternal) Myocardial infarction Father Hypertension Denies family history of Ovarian cancer Prostate cancer Breast cancer Lung cancer Colorectal cancer Stroke Social History Smoking Status: Never smoker Second Hand Exposure: No; Do You Dip or Chew Tobacco: No; Hx Alcohol Use: No Hx Substance Use: No Preferred Language: Guatemalan Communication Ability: Effective Visual Impairment: Limited Hearing Ability: Normal Scow Hand Required: No Beliefs That Will Affect Care: Latter Day Latter Day Beliefs: Pentecostalism marital status: Current Living Situation: Spouse current occupational status: unemployed How many Children do You have: 4 Other Information That Helps Us Care for You: No Feels Safe at Home: Yes Safety Concerns: Feels Safe At This Time Childhood Exposure to Second-Hand Smoke: No caffeine: Yes Dental Care, Regularly: Yes Physical Activity Frequency: Daily Seatbelt Use: always Sunscreen Use: Yes Assistive Devices: Glasses Physical Exam Physical Exam: Adult white female in no distress. BMI 41.7. Afebrile. BP 144/83 mmHg. Pulse 90 bpm and regular. Respirations 16 and unlabored. Skin: no ecchymoses or generalized lesions. HEENT: unremarkable. Neck: JVP at the clavicle at 90 degrees, no carotid bruits. Lungs: clear. Cardiac: regular rhythm, normal S1-2, no murmur. Abdomen: Mild right upper quadrant tenderness, otherwise benign. Extremities: no edema, pulses intact. Neurologic: normal affect and conversation, nonfocal. Results & Data Laboratory Results Troponin as noted, a third troponin dropped back into the 300 range. Potassium 2.9, otherwise normal electrolytes, BUN 9, creatinine 0.87. Normal CBC. Diagnostic Findings ECG as noted in HPI. Chest x-ray unremarkable. Chest CT without evidence of pulmonary embolism or pulmonary infiltrates. PG Care Time/CCT Total # of Minutes Spent Total Time Spent with Patient: Total time spent is greater than 50% in coordination of care (as documented) at patient's floor/unit and/or counseling patient: Coding Level of Care Code 23855 IN/OBS CONSULT LVL 4,60M Diagnoses Chest pain R07.9 Elevated troponin R79.89 Tachycardia R00.0 Hypertriglyceridemia E78.1 Prediabetes R73.03 Obesity (BMI 30-39.9) E66.9 Hypertension I10 Cholelithiasis K80.20
[2024-06-14] MEDS: CETIRIZINE HCL 10 MG TABLET PO SCH (23:07)
[2024-06-15 06:49] LABS: Hemoglobin 13.6 g/dl (12.0-16.0); Mean Corpuscular Hemoglobin 30.6 pg (25.0-34.0); Mean Corpuscular Hgb Conc 33.2 g/dL (32.0-36.0); Mean Corpuscular Volume 92.1 fL (80.0-100.0); Mean Platelet Volume 9.7 fL (9.4-12.4); Platelet Count 255 K/uL (130-400); RDW Coefficient of Variation 12.4 % (11.5-14.5); RDW Standard Deviation 42.2 fL (36.4-46.3); Red Blood Count 4.45 M/uL (4.20-5.40); White Blood Count 7.19 K/ul (4.8-10.8)
[2024-06-15 07:15] LABS: ANTI-Xa, UFH(UnfractionatedHep 0.24 IU/ml (0.3-0.7)
[2024-06-15 07:37] VITALS: TEMP 98.1
[2024-06-15 07:47] LABS: BUN Creatinine Ratio 9.9 (10-20); Calcium 9.4 mg/dl (8.6-10.3); Creatinine Clr Calc Pharmacy 86.7 ml/min; Est GFR (African American) 83.5 ml/min; Potassium 3.6 mmol/L (3.5-5.1)
--- NOTE | 2024-06-15 08:19 | Pre Anesthesia Assessment ---
Date of Service June 15, 2024 Pre Sedation Assessment Vital Signs Temp Pulse Pulse Resp BP Pulse Ox O2 Del Method 06/15/24 07:36 36.7 C 67 18 129/77 97 Room Air 06/15/24 07:00 50 L 06/15/24 03:07 36.6 C 71 16 138/83 98 Room Air 06/15/24 00:25 48 L 06/14/24 23:04 36.8 C 72 16 148/84 H 96 Room Air 06/14/24 22:00 73 06/14/24 19:44 36.9 C 75 20 137/82 92 Room Air 06/14/24 15:14 36.9 C 62 18 145/92 H 96 Room Air 06/14/24 13:44 36.8 C 91 H 16 144/83 H 98 Room Air 06/14/24 13:40 69 06/14/24 13:06 Room Air 06/14/24 11:42 64 16 124/82 96 Room Air 06/14/24 10:39 70 16 133/83 96 Room Air 06/14/24 09:38 90 21 129/82 96 Room Air 06/14/24 09:38 90 21 95 Room Air 06/14/24 08:37 61 20 141/85 H 93 Room Air Cardiovascular RRR, no murmur, no edema Respiratory normal respiratory effort, lungs clear to auscultation Pre-Sedation Airway Assessment Smoking Status: Never smoker mallampati 3 ASA 3 Notes The planned sedation has been discussed with the patient. Informed Consent was obtained. I have identified the patient, determined the appropriateness of sedation and have assessed the patient immediately prior to the procedure. All medicine(s) and interventions are by my order.
[2024-06-15] MEDS: POTASSIUM CHLORIDE CRTAB 20 MEQ TABCR PO SCH (08:23)
[2024-06-15] MEDS: niCARdipine HCL INJ 2.5 MG/ML 10 ML AMP ONE (08:47)
[2024-06-15] MEDS: NITROGLYCERIN/D5W 100MCG/ML 20ML SYR ONE (08:48)
[2024-06-15] MEDS: MIDAZOLAM HCL 1 MG/ML 2ML VIAL ONE (08:53)
[2024-06-15] MEDS: HEPARIN (PORCINE) 1000 UNIT/ML 10 ML (CATH LAB USE ONLY) ONE (08:54)
[2024-06-15] MEDS: fentaNYL citrate PF 100 MCG/2 ML VIAL ONE (08:54)
[2024-06-15] MEDS: OPTIRAY 350 ONE (08:54)
--- NOTE | 2024-06-15 08:57 | Post Anesthesia Assessment ---
Date of Service June 15, 2024 Post Sedation Assessment Vital Signs Temp Pulse Pulse Resp BP Pulse Ox O2 Del Method 06/15/24 07:57 80 18 98 Room Air 06/15/24 07:36 36.7 C 67 18 129/77 97 Room Air 06/15/24 07:00 50 L 06/15/24 03:07 36.6 C 71 16 138/83 98 Room Air 06/15/24 00:25 48 L 06/14/24 23:04 36.8 C 72 16 148/84 H 96 Room Air 06/14/24 22:00 73 06/14/24 19:44 36.9 C 75 20 137/82 92 Room Air 06/14/24 15:14 36.9 C 62 18 145/92 H 96 Room Air 06/14/24 13:44 36.8 C 91 H 16 144/83 H 98 Room Air 06/14/24 13:40 69 06/14/24 13:06 Room Air 06/14/24 11:42 64 16 124/82 96 Room Air 06/14/24 10:39 70 16 133/83 96 Room Air 06/14/24 09:38 90 21 129/82 96 Room Air 06/14/24 09:38 90 21 95 Room Air Recovery Score Activity: Moves 4 extremities Respiration: Deep Breath/Cough Circulation: +/-20% PreAnes Value Consciousness: Fully Awake Oxygen Saturation: > 92% On Room Air Discharge Sedation Level of Care: Fast Track Phase II Post Sedation Plan On clinical assessment, the patient appears to have tolerated the sedation without complications. Patient is recovering as anticipated. Patient will continue to be monitored by nursing and may be discharged when sedation discharge criteria are met per below protocol. Upon Completions of procedure up to 15 minutes continue every 5 minute vital signs and the P.A.R. score; then discharge to a Phase I or Fast Track to Phase II per the following guidelines: * Discharge Patient to appropriate Phase II area if PAR is 8 or greater or return to pre- procedure baseline. The post - procedure orders will be as directed. * If PAR score is less than 8 or not return to pre-procedure baseline then patient will follow Phase I monitoring till PAR is reached for Phase II. The Phase I may be done in procedure room or may call to secure a Phase I area. * If naloxone or flumazenil are used for reversal, hold in Phase I for continued monitoring from when last reversal dose was given for a minimum of 60 minutes or longer pending the nurse and/or physician discretion of patient condition before discharge to Phase II. Please call the Sedation Physician to re-evaluate and complete post-note for discharge to Phase II area. Do NOT discharge from procedure sedation or Phase 1 until post- sedation evaluation note is complete by procedure /sedation MD Sedation Discharge Instructions to be given to the patient at discharge to home. [facility] Procedure Codes (Charges) Indication for Procedure Indication for procedure: NSTEMI Sedation/Anesthesia Procedure 1: Sedation/Anesthesia: 85352 Mod Sedation by the same physician;Init15 Min Child Age 5 & Up (INITIAL 15 MIN. START 0845, END 0854) Total Sedation Time (minutes): 11
--- NOTE | 2024-06-15 08:57 | Ultrasound Report ---
ULTRASOUND RIGHT UPPER QUADRANT ABDOMEN CLINICAL HISTORY: Right upper quadrant abdominal pain. COMPARISON STUDY: Abdominal ultrasound dated 01/27/2023 TECHNIQUE: Real-time, grayscale, and color flow sonography of the right upper quadrant of the abdomen was performed. Images are reviewed in the transverse and longitudinal planes. FINDINGS: Liver: The liver is normal in size and echotexture. There is no intrahepatic biliary ductal dilatatio n. The main portal vein is patent. Gallbladder: There are numerous small shadowing calcified gallstones. The gallbladder is otherwise no rmal in appearance. There is no gallbladder wall thickening or pericholecystic fluid. A sonographic M urphy's sign is reportedly absent. The common bile duct measures up to 0 point cm in diameter. Pancreas: Visualized portions of the pancreatic head and body are normal in appearance. Right kidney: Survey images of the right kidney demonstrate normal size and echotexture. There is no hydronephrosis. Ascites: None. IMPRESSION: Cholelithiasis without sonographic evidence of acute cholecystitis. ACT 112: Negative or not required by law. Electronically signed by: Ibrahima Montaño M.D. 06/15/2024 8:56 AM
--- NOTE | 2024-06-15 09:12 | Cardiac Catheterization ---
[facility] Data: Sales Representative Health Insurance Cardiac Status Clinical evaluation leading to the procedure CAD Presenation: Non STEMI Anginal Classification: CCS IV Heart Failure: No Cardiogenic Shock within 24 Hours: No Cardiac Arrest within 24 Hours: No Imaging Studies Past 6 Months: Yes Stress Studies Past 6 Months: No Coronary Anatomy Dominant: Right Left Main (% Stenosis): Normal LAD (% Stenosis): Normal D1 (% Stenosis): Normal D2 (% Stenosis): Normal Circumflex (% Stenosis): Normal OM1 (% Stenosis): Normal RCA (% Stenosis): Normal R PDA (% Stenosis): Normal R PL1 (% Stenosis): Normal Diagnostic Physicians Name: Diaz Emery MD, PhD Closure Device Percutaneous Entry Location: Radial Closure Device: Radial Band Recommendations: Medical Therapy and/or Counseling PCI Indication: PCI for high risk Non-KEV Cardiac Cath Procedure Full Procedure Date June 15, 2024 Pre-Procedure Diagnosis Pre-Procedure Diagnosis: Non STEMI AUC Score AUC Score: 07 Post-Procedure Diagnosis Post-Procedure Diagnosis: Normal Coronary Arteries Procedure(s) Performed Procedure(s) Performed: Coronary Angiography Service Officer Diaz Emery MD, PhD Estimated Blood Loss Estimated Blood Loss: Less than 5 cc Medication(s) Medication(s): Fentanyl, Heparin, Lidocaine 1%, Nicardipine, Nitroglycerin and Versed Summary of Findings Brief description: Patient was brought to the cardiac catheterization suite where she was shaved and prepped in a sterile fashion. Sedated using IV Versed and fentanyl. Soft tissues of the right wrist were anesthetized using 2 mL of 1% again. The right radial artery was accessed with a modified Seldinger technique and a 6 Swedish radial artery glide sheath was placed. Patient was provided anticoagulation with IV heparin and antispasmodics including nicardipine and nitroglycerin. All catheters were advanced and exchanged over a 0.035 J-tip wire. Left coronary angiography in orthogonal views a 5 Swedish [place] 4 diagnostic catheter. Right coronary angiography in orthogonal views with a 5 Swedish [place] 4 diagnostic catheter. Diagnostic catheter was removed. Radial artery sheath was removed. Hemostasis was obtained using the radial band. Patient was hemodynamically stable and asymptomatic. She was returned to the recovery area. This ended the case. Coronary angiography findings: VPD-aksjw-bzdxkut vessel bifurcating into LAD and circumflex. Angiographically without disease. FWY-omcnd-chscxoo and transapical. Gives a large first diagonal followed by an even larger branching second diagonal. The LAD and its branches have no a ngiographically evident disease. EWm-zhnxi-mzzxcjl and nondominant. Travels in the AV groove where it is first major branch is a large multi branching OM1. After this the AV groove vessel becomes a much smaller and then terminates distally. There is no angiographically evident disease in the circumflex or its branches. KTV-lrpok-ngyzeke and dominant vessel. It bifurcates distally into the PDA and posterolateral branch which are both of large caliber. There is no angiographically evident disease in the RCA or its branches. Summary: 1. Normal epicardial coronary arteries 2. Recommend guideline directed medical therapy for primary prevention of coronary disease to include; abstinence from tobacco, cardiac prudent diet, regular cardiovascular exercise, and treatment of pertinent comorbid disease to clinical targets. 3. Continue workup for nonanginal chest discomfort. Hemodynamics Rest Ao:: 136/90 mmHg Final Ao: 133/90 mmHg LV: Not performed Recommendations Recommendations: Medical Therapy and/or Counseling Radiation Exposure (mGy) 543 mGy, fluoroscopy time 1.4 minutes Contrast (mls) 20 cc Anesthesia 1 mg Versed, 25 mcg fentanyl IV. Start time 0845, end time 0854 Procedural Complication(s) None Disposition Sales Representative Health Insurance Holding/Recovery I attest to the content of the Intraoperative Record and any orders documented therein. Any exceptions are noted below. [facility] Card Cath Procedure Codes Cardiac Catheterization Procedure 1: Cardiovascular Cath Procedures: 71460 Coronaries Moderate Sedation Procedure 1: Sedation/Anesthesia: 08864 Mod Sedation by the same physician;Init15 Min Child Age 5 & Up (Initial 15 minutes, start 0845, end 0854) PG Care Time/CCT Total # of Minutes Spent Total Time Spent with Patient: Total time spent is greater than 50% in coordination of care (as documented) at patient's floor/unit and/or counseling patient:
[2024-06-15 09:32] LABS: Albumin Level 4.2 gm/dl (3.4-5.0); Bilirubin Direct 0.1 mg/dl (0-0.2); Bilirubin,Total 0.6 mg/dl (0.2-1.0); Total Protein 6.9 gm/dl (6.0-8.3)
--- NOTE | 2024-06-15 11:19 | Gastrointestinal Consultation ---
Date of Consultation June 15, 2024 Assessment & Plan (1) Non-ST elevated myocardial infarction (non-STEMI): (2) Chest pain: I saw and examined this patient with our nurse practitioner and agree with her assessment and plan. Her symptoms could be related to biliary colic. She has had episodic upper abdominal and chest pain over the years that support this. Cannot explain the etiology of her elevated troponins. Need further cardiac input. Clinically improved symptoms have resolved. Can advance diet as tolerated. I have recommended the patient's seek a surgical consult regarding elective cholecystectomy in light of her probable episodes of biliary colic in the past and possibly on this admission. Plan Symptoms resolved -Continue to monitor LFTs -Low fat diet -Consider outpatient surgical evaluation regarding her gallbladder History of Present Illness Reason for Consultation: RUQ pain Attending Physician: Mark Reed History of Present Illness Patient is a 53 yo female with PMH of HTN, elevated triglycerides, & gallstones who presented to the ED after experiencing chest pain. She notes significant stress and some poor food choices recently. She notes she has a history of gallbladder issues but has been avoiding surgery. She notes that after her meal she developed epigastric pain and chest discomfort with radiation into her left arm. After experiencing nausea & vomiting, she felt like her heart was racing. She continued to push through, but notes that her chest pain with radiation down the arms felt so significant that she presented to the ED. She had findings of an elevated troponin up to 504.7. Cardiology evaluation and she underwent a car diac cath which was unremarkable. RUQ US shows cholelithiasis but no evidence of cholecystitis. AST, ALT, & T Bili have been entirely normal throughout the hospitalization. She denies heartburn or reflux. She denies significant NSAID use. Allergies Allergy/AdvReac Type Severity Reaction Status Date / Time Bactrim Allergy Unknown STIFF NECK Verified 02/02/16 12:18 clindamycin Allergy Unknown Redness of Verified 06/14/24 02:35 Skin Penicillins Allergy Unknown Rash Verified 06/14/24 02:35 sulfamethoxazole Allergy Unknown STIFF NECK Verified 06/14/24 02:35 trimethoprim Allergy Unknown STIFF NECK Verified 06/14/24 02:35 prednisone Allergy Rash Verified 06/14/24 02:35 Tetracyclines AdvReac Mild doxy ok. Verified 06/14/24 02:35 erythromycin base AdvReac Unknown GI Verified 06/14/24 02:35 Home Medications Medication Instructions Recorded Confirmed Type acetaminophen 325 mg capsule 325 - 650 mg PO QID PRN Pain 09/19/20 06/14/24 History (Tylenol) ibuprofen 200 mg tablet (Advil) 200 mg PO Q6H PRN Pain 09/19/20 06/14/24 History buspirone 5 mg tablet 5 mg PO TID PRN anxiety #90 tabs 12/12/22 06/14/24 Rx cholecalciferol (vitamin D3) 10 30 mcg (3 x 10 mcg (400 unit)) PO 04/02/23 06/14/24 Rx mcg (400 unit) chewable tablet DAILY #270 tabs nebivolol 5 mg tablet (Bystolic) 5 mg PO DAILY #30 tabs 05/20/24 06/14/24 Rx cetirizine 10 mg tablet 5 mg PO HS 06/14/24 06/14/24 History hydrochlorothiazide 12.5 mg tablet 12.5 mg PO DAILY PRN swelling 06/14/24 06/14/24 History potassium chloride 10 mEq 10 meq PO DAILY PRN when you take 06/15/24 Rx tablet,extended release hydrochlorothiazide #30 tabs Patient History Medical History (Updated 06/15/24 @ 12:46 by Carlos Enrique Mojica MD) Hyperglycemia Candidal intertrigo Arthralgia of multiple sites Acholic stool Cyst of ovary (10/13/12) Surgical History S/[facility] [place] History of appendectomy (10/13/12) H/O dilation and curettage (10/13/12) Family History Mother Diabetes Uterine cancer Grandfather (Paternal) Myocardial infarction Father Hypertension Denies family history of Ovarian cancer Prostate cancer Breast cancer Lung cancer Colorectal cancer Stroke Social History Smoking Status: Never smoker Second Hand Exposure: No; Do You Dip or Chew Tobacco: No; Hx Alcohol Use: No Hx Substance Use: No Preferred Language: Kosovan Communication Ability: Effective Visual Impairment: Limited Hearing Ability: Normal Gymnastic Teacher Required: No Beliefs That Will Affect Care: Confucianist Confucianist Beliefs: Mormonism marital status: Current Living Situation: Spouse current occupational status: unemployed How many Children do You have: 4 Feels Safe at Home: Yes Childhood Exposure to Second-Hand Smoke: No caffeine: Yes Dental Care, Regularly: Yes Physical Activity Frequency: Daily Seatbelt Use: always Sunscreen Use: Yes Assistive Devices: None Review of Systems Cardiovascular: + chest pain Gastrointestinal: no hematemesis, no change in bowel habits, no blood in stools and no melena Physical Exam Constitutional: well developed Respiratory: normal respiratory effort Gastrointestinal (Abdomen): normal bowel sounds, soft, nontender, no hepatosplenomegaly Psychiatric: Orientation: alert and oriented x 3 Results & Data Vital Signs (Past 12 Hours) Vital Signs Temp Pulse Pulse Resp BP Pulse Ox O2 Del Method 06/15/24 10:57 75 18 129/84 99 Room Air 06/15/24 10:37 70 16 95/61 L 94 Room Air 06/15/24 10:08 36.7 C 71 18 136/86 95 Room Air 06/15/24 09:50 56 L 18 129/84 95 Room Air 06/15/24 09:32 36.7 C 63 18 143/76 H 95 Room Air 06/15/24 09:30 63 06/15/24 09:10 74 18 153/86 H 98 Room Air 06/15/24 09:05 72 18 153/86 H 06/15/24 07:57 80 18 98 Room Air 06/15/24 07:36 36.7 C 67 18 129/77 97 Room Air 06/15/24 07:00 50 L 06/15/24 03:07 36.6 C 71 16 138/83 98 Room Air 06/15/24 00:25 48 L Diagnostic Findings Liver Ultrasound 06/14/24 15:32 ULTRASOUND RIGHT UPPER QUADRANT ABDOMEN CLINICAL HISTORY: Right upper quadrant abdominal pain. COMPARISON STUDY: Abdominal ultrasound dated 01/27/2023 TECHNIQUE: Real-time, grayscale, and color flow sonography of the right upper quadrant of the abdomen was performed. Images are reviewed in the transverse and longitudinal planes. FINDINGS: Liver: The liver is normal in size and echotexture. There is no intrahepatic biliary ductal dilatation. The main portal vein is patent. Gallbladder: There are numerous small shadowing calcified gallstones. The gallbladder is otherwise normal in appearance. There is no gallbladder wall thickening or pericholecystic fluid. A sonographic Hughes's sign is reportedly absent. The common bile duct measures up to 0 point cm in diameter. Pancreas: Visualized portions of the pancreatic head and body are normal in appearance. Right kidney: Survey images of the right kidney demonstrate normal size and echotexture. There is no hydronephrosis. Ascites: None. IMPRESSION: Cholelithiasis without sonographic evidence of acute cholecystitis. ACT 112: Negative or not required by law. Electronically signed by: Ibrahima Montaño M.D. 06/15/2024 8:56 AM PG Care Time/CCT Total # of Minutes Spent Total Time Spent with Patient: Total time spent is greater than 50% in coordination of care (as documented) at patient's floor/unit and/or counseling patient: Coding Level of Care Code 22629 IN/OBS CONSULT LVL 4,60M Diagnoses Non-ST elevated myocardial infarction (non-STEMI) I21.4 Chest pain R07.9
[2024-06-15 11:23] VITALS: BP 130/85; PULSE 66; RESP 16; O2SAT 94
--- NOTE | 2024-06-15 12:51 | Cardiology Progress Note ---
Date of Service June 15, 2024 Assessment & Plan (1) Demand ischemia: (2) Cholelithiasis: (3) Hypertension: Plan Most likely initial symptoms were related to her cholelithiasis, with resultant demand ischemia transiently elevating troponin. As noted catheterization showed normal coronary arteries, she does not require any specific medications beyond those that addressed future vascular risk factors (e.g., antihypertensives). Heart rate was relatively bradycardic despite her not having received any negative chronotropic medications, as such she may need to reconsider initiation of nebivolol (which was to be started for her tachycardic symptoms, but which she had not yet taken). Since she was much reassured by the finding of normal arteries and understands that her tachycardia is likely physiologic, she may not require specific medical intervention. Could resume hydrochlorothiazide and potassium for her hypertension, further adjustment by her PCP (Dr. Herbert) and street light cleaner (Dr. Connell). Okay for discharge home. Admission and Anticipated Discharge Date Admission Date: June 14, 2024 Subjective She is doing well. Cardiac catheterization this morning showed normal coronary arteries. She had no somatic complaints at the time of my evaluation earlier today. Telemetry showed sinus rhythm in the 50-60 bpm range. Physical Exam Physical Exam: No distress. BP normotensive. Pulse 60 bpm and regular. Skin: no ecchymoses or generalized lesions. HEENT: unremarkable. Neck: JVP at the clavicle at 90 degrees, no carotid bruits. Lungs: clear. Cardiac: regular rhythm, normal S1-2, no murmur. Abdomen: benign. Extremities: Right radial access site appears benign. No edema, pulses intact. Neurologic: normal affect and conversation, nonfocal. Results & Data Laboratory Results Normal electrolytes, BUN 9, creatinine 0.91. PG Care Time/CCT Total # of Minutes Spent Total Time Spent with Patient: Total time spent is greater than 50% in coordination of care (as documented) at patient's floor/unit and/or counseling patient: Coding Level of Care Code 44418 SUB INP/OBS CARE 2/35MIN Diagnoses Demand ischemia I24.89 Cholelithiasis K80.20 Hypertension I10
--- NOTE | 2024-06-17 15:02 | Coding Query ---
CODING QUERY To promote full compliance with coding requirements relating to patient care, provider participation is requested in all cases of legal process specialist uncertainty. Please assist us with the question(s) below: [id number] GI CONS- Non-ST elevated myocardial infarction (non-STEMI) Her symptoms could be related to biliary colic. She has had episodic upper abdominal and chest pain over the years that support this. Cannot explain the etiology of her elevated troponins 06/15 cardio note-Most likely initial symptoms were related to her cholelithiasis, with resultant demand ischemia transiently elevating troponin. Coding Question(s): Can you please further clarify the elevated troponins? [ ] Nstemi d/t demand ischemia (Type 2) [ x ] Only demand ischemia [ ] Other Physician's Response(s): Thank you Vera Hunt, CDIP, CCS Principal Diagnosis: "that condition established after study, to be chiefly responsible for occasioning the admission of the patient to the hospital for care." Co-Existing Principal Diagnosis: "when two or more diagnoses equally meet the criteria for principal diagnosis as determined by the circumstances of admission, diagnostic work up, and/or therapy provided, and the Alphabetic Index, Tabular List, or another coding guideline does not provide sequencing direction, any one of the diagnoses may be sequenced first." "When the physician has documented what appears to be a current diagnosis in the body of the record, but has not included the diagnosis in the final diagnostic statement, the physician should be asked whether the diagnosis should be added." (Source Coding Clinic 2 QTR90. p3-4) GRACY
== END 2024-06-15 13:34 | disposition home or self-care (01) | DRG 445 ==
LOC: SUATTDRO → ED 02:04 → EDINP 05:22 → SUATTDRO 05:22 → 2S 13:06
PROC: CLB.CCO (2024-06-15 08:00)

== ENCOUNTER 2024-07-06 05:20 | Observation (INO) ==
--- NOTE | 2024-06-23 12:41 | Anesthesiology Consultation ---
Date of Service June 23, 2024 Assessment & Plan (1) Encounter for pre-operative examination: Chart Review Chart Review: Acceptable Risk for Surgery and Patient NOT seen in Pre Admission Testing *Pt presented to [facility] ED via EMS 06/16/2024. Of note, pt had a syncopal episode in ambulance after receiving NTG spray. She does note a hx of near syncope as a result of hypoglycemia 'on occasion'. She was c/o substernal CP radiating to midback and L arm, she had elevated troponin and NS EKG changes. Had a nl ECHO and cath which was also normal. Per inpatient Cardio consult, 'likely initial sx r/t cholelithiasis with resultant demand ischemia". *Pt saw [facility] 06/22/24: "Preoperative cardiovascular examination: -per Kyle Criteria, patient was counseled that shewould be placed at a low risk for any adverse perioperative cardiovascular events associated withgallbladder surgery. Patient is on a good medication regimen and no other cardiac testing or interventions would further lower that risk.Patient statesheunderstands and is accepting ofthat risk and wishes to proceed with surgery" *D/W (Re: the above) and agreed that patient is acceptable to proceed to surgery at this time. Note: pt was instructed to take 3oz apple juice if feeling dizzy AM of surgery. Will d/w OR to make early case if possible. History Surgery Operation Date: 07/06/24 11:20 Proposed Procedures p Laparoscopic Cholecystectomy, Possible Cholangiogram, Possible Open - Shantanu Marva Lainez DO Height/Weight Height: 5 ft 4 in Weight: 97.976 kg Allergies Allergy/AdvReac Type Severity Reaction Status Date / Time Bactrim Allergy Unknown STIFF NECK Verified 02/02/16 12:18 clindamycin Allergy Unknown Redness of Verified 06/23/24 11:16 Skin Penicillins Allergy Unknown Rash Verified 06/23/24 11:16 sulfamethoxazole Allergy Unknown STIFF NECK Verified 06/23/24 11:16 trimethoprim Allergy Unknown STIFF NECK Verified 06/23/24 11:16 prednisone Allergy Rash Verified 06/23/24 11:16 Tetracyclines AdvReac Mild doxy ok. Verified 06/23/24 11:16 erythromycin base AdvReac Unknown GI Verified 06/23/24 11:16 Medications Home Medications Medication Instructions Recorded Confirmed Last Taken acetaminophen 325 mg capsule 325 - 650 mg PO QID PRN Pain 11/24/20 08/28/24 Unknown (Tylenol) ibuprofen 200 mg tablet (Advil) 200 mg PO Q6H PRN Pain 09/19/20 06/23/24 Unknown buspirone 5 mg tablet 5 mg PO TID PRN anxiety #90 tabs 12/12/22 06/23/24 Unknown cetirizine 10 mg tablet 5 mg PO HS 06/14/24 06/23/24 06/13/24 hydrochlorothiazide 12.5 mg tablet 12.5 mg PO DAILY PRN swelling 06/14/24 06/23/24 Unknown alprazolam 0.25 mg tablet (Xanax) 0.25 mg PO TID PRN prn 06/23/24 06/23/24 Unknown aspirin 81 mg tablet 81 mg PO QAM 06/23/24 06/23/24 Unknown cholecalciferol (vitamin D3) 10 30 mcg PO QAM 06/23/24 06/23/24 Unknown mcg (400 unit) chewable tablet potassium 99 mg tablet 99 mg PO QAM 06/23/24 06/23/24 Unknown Past Medical History Medical History (Updated 06/24/24 @ 10:27 by Toma Edwards PA-C) Abnormal brain MRI 'single sub-cm focus of FLAIR hyperintensity within the white matter of the L frontal lobe of doubtful clinical significance' per Neuro note 10/31/22 "they found a nodule" monitoring, followed with Dr Banda Acholic stool Anxiety pt Rx xanax during 06/16/24 ED visit for 'chest pains' Arthralgia of multiple sites Candidal intertrigo Elevated blood pressure, situational Hepatic steatosis History of gastric ulcer History of syncope most recently 06/14/24 during ambulance ride to ED (following Nitro spray) History of trigeminal neuralgia no issues currently Hypertriglyceridemia Hypoglycemia pt states has hx of hypoglycemia and near-syncopal episodes as a result Hypokalemia noted in ED 06/14/24; resolved upon D/C; pt taking supplement Metabolic syndrome Non-ST elevated myocardial infarction (non-STEMI) 06/14/2024 [facility] ED with chest pain; cath normal; per cardio, 'likely initial sx r/t cholelithiasis with resultant demand ischemia" Obesity Prediabetes TMJ (temporomandibular joint disorder) patient denies Past Family History Family History Mother Diabetes Uterine cancer Grandfather (Paternal) Myocardial infarction Father Hypertension Heart disease Son Diabetes Denies family history of Ovarian cancer Prostate cancer Breast cancer Lung cancer Colorectal cancer Stroke Past Surgical History Surgical History (Updated 06/24/24 @ 10:27 by Toma Edwards PA-C) H/O dilation and curettage (10/13/12) History of appendectomy (10/13/12) History of cardiac cath 06/15/2024 [facility]: normal S/P [facility] [place] Social History Smoking Status: Never smoker Do You Dip or Chew Tobacco: No Hx Alcohol Use: No Hx Substance Use: No substance use type: does not use Lab Results Anesthesia Preop Results Results Anesthesia Widget: WBC 9.07 K/ul (4.8-10.8) 06/16/24 Hgb 14.8 g/dl (12.0-16.0) 06/16/24 Hct 43.2 % (37.0-47.0) 06/16/24 Plt 290 K/uL (130-400) 06/16/24 Na 138 mmol/L (136-145) 06/16/24 K 3.5 mmol/L (3.5-5.1) 06/16/24 Cl 102 mmol/L (98-107) 06/16/24 CO2 28 mmol/L (21-32) 06/16/24 BUN 12 mg/dl (6-23) 06/16/24 Creat 0.92 mg/dl (0.6-1.2) 06/16/24 Glucose Level 111 mg/dl (70-99(Fasting)) H 06/16/24 POC Glucose 105 mg/dl (70-99) H 06/15/24 PT 10.9 Seconds (9.0-12.0) 06/16/24 PTT 26 Seconds (21-31) 06/16/24 INR 1.0 (0.9-1.1) 06/16/24 Testing Electrocardiogram Date: 06/16/24 Findings: + NSR @ (78bpm) possible old anterior infarct (cited on/before 05/20/24). Compared to 06/14/24, ST depression in lateral leads no longer present Chest X-Ray Date: 06/16/24 Findings: + NAD Echocardiogram Date: 06/14/24 EF: 55-60% LV Function: normal RWMA: + none Borderline cLVH. Gr I DD. No significant valvular disease. Compared to 12/26/20, no significant change. Stress Test Date: 12/26/20 Type: exercise Findings: + WNL Normal exercise ECHO without evidence of inducible ischemia. LV normal in size, wall thickness, systolic function. EF 55-60% No significant valve disease. Pt reached 7.0METS, 89%MPHR Cardiac Catheterization Date: 06/15/24 Coronary angiography findings: GAD-zgtcx-ogfmsyq vessel bifurcating into LAD and circumflex. Angiographically without disease. TXL-reywm-gzzhpwe and transapical. Gives a large first diagonal followed by an even larger branching second diagonal. The LAD and its branches have no angiographically evident disease. OMr-vvind-oxhmuqv and nondominant. Travels in the AV groove where it is first major branch is a large multi branching OM1. After this the AV groove vessel becomes a much smaller and then terminates distally. There is no angiographically evident disease in the circumflex or its branches. HAV-neynx-gmmrcve and dominant vessel. It bifurcates distally into the PDA and posterolateral branch which are both of large caliber. There is no angiographically evident disease in the RCA or its branches. Summary: 1. Normal epicardial coronary arteries 2. Recommend guideline directed medical therapy for primary prevention of coronary disease to include; abstinence from tobacco, cardiac prudent diet, regular cardiovascular exercise, and treatment of pertinent comorbid disease to clinical targets. 3. Continue workup for nonanginal chest discomfort. Other Testing Chest CTA 06/14/24: 1. Accounting for respiratory artifact, there is no definite evidence for pulmonary embolism. 2. No definite focal airspace consolidation. No pleural effusion or pneumothorax. Holter 01/21/24: NSR throughout. Rare PACs (0.01%), Rare PVCs (<0.01%) No afib or aflutter No pauses were inappropriate bradycardias Paroxysmal SVT, 1 episode, 8 beats in length, asymptomatic No corresponding dysrhythmia to any diary entries.
[~2024-07-06 05:20] MED LIST changes: +ALLERGY Noted to ORDERED Medication SCH; -ESCI10TA17 PO; -LORA-741 PO
[2024-07-06] MEDS: LR 15ML/HR IV SCH (06:07)
[2024-07-06] MEDS: LACTATED RINGER'S 1,000 ML IV SCH (06:07)
[2024-07-06] MEDS ORDERED: ONDANSETRON INJ 2 MG/ML 2 ML VIAL ONE (06:23)
[2024-07-06] MEDS ORDERED: DEXAMETHASONE SOD INJ 4 MG/ML VIAL ONE (06:23)
[2024-07-06] MEDS ORDERED: LIDOCAINE 2% 2 ML VIAL/AMP(20MG/ML) INFIL ONE (06:23)
[2024-07-06] MEDS ORDERED: ROCURONIUM BROMIDE 10 MG/ML 5 ML VIAL IV ONE (06:23)
[2024-07-06] MEDS ORDERED: PROPOFOL IV EMULSION 10 MG/ML 20 ML VIAL IV ONE (06:23)
[2024-07-06] MEDS ORDERED: MIDAZOLAM HCL 1 MG/ML 2ML VIAL ONE (06:24)
[2024-07-06] MEDS ORDERED: fentaNYL citrate PF 100 MCG/2 ML VIAL ONE (06:24)
[2024-07-06] MEDS ORDERED: Nursing to Pharmacy Communication SCH (06:30)
[2024-07-06] MEDS ORDERED: ePHEDrine sulfate 50 MG/ML AMP IV PRN (06:31)
[2024-07-06] MEDS ORDERED: ONDANSETRON INJ 2 MG/ML 2 ML VIAL IV PRN ×2 (06:31→07:53)
[2024-07-06] MEDS ORDERED: ATROPINE SULFATE 0.1 MG/ML 10ML SYR IV PRN (06:31)
--- NOTE | 2024-07-06 06:46 | History & Physical Bridge Note ---
Date of Service July 06, 2024 History & Physical Bridge Note I have examined the patient, reviewed the History & Physical and in the interval since the performance of the History & Physical I have noted the following changes of clinical significance: no changes noted
[2024-07-06] MEDS: ceFAZolin 2000MG 2,000 MG/15 ML SYR IV SCH (06:52)
[2024-07-06] MEDS ORDERED: KETOROLAC 30 MG/ML VIAL ONE (07:20)
[2024-07-06] MEDS ORDERED: SUGAMMADEX SODIUM 200 MG/2 ML VIAL IV ONE (07:21)
[2024-07-06] MEDS: BUPIVACAINE/EPINEPHRINE 0.25% 1:200,000 30 ML VIAL ONE (07:42)
[2024-07-06] MEDS ORDERED: MoRPHine SULFATE 2 MG/ML CARP IV PRN (07:53)
[2024-07-06] MEDS ORDERED: MoRPHine SULFATE 4 MG/ML 1 ML CARP\\VIAL IV PRN (07:53)
--- NOTE | 2024-07-06 07:55 | Post Operative Brief Note ---
PG Immediate Post Op with CF Date of Surgery July 06, 2024 Pre & Post Diagnosis Operation Date: 07/06/24 07:00 Pre-Op Diagnosis: Cholelithiasis Post-Op Diagnosis: Cholelithiasis I identified the patient and participated in the time-out.: Yes Procedure Operation Date: 07/06/24 07:00 Actual Procedures p Laparoscopic Cholecystectomy(Not Applicable) - Shantanu Lainez DO Surgeon Shantanu Lainez DO Endocrinology Teacher Milly Banegas PA-C Estimated Blood Loss 10 Findings Consistent with Post-Op Diagnosis Specimens Specimen Description: A) Gallbladder and contents Anesthesia Type General Complications none Disposition Disposition: Recovery Room
--- NOTE | 2024-07-06 07:57 | Operative Report ---
PG Post Operative Report Pre & Post Diagnosis Operation Date: 07/06/24 07:00 Pre-Op Diagnosis: Cholelithiasis Post-Op Diagnosis: Cholelithiasis I identified the patient and participated in the time-out.: Yes Procedure Operation Date: 07/06/24 07:00 Actual Procedures p Laparoscopic Cholecystectomy(Not Applicable) - Shantanu Lainez DO Surgeon Shantanu Lainez DO Student Teaching Coordinator Milly Banegas PA-C Estimated Blood Loss 10 Findings Consistent with Post-Op Diagnosis Fluids see anesthesia record Specimens Gallbladder to pathology Drains None Anesthesia Type General Complications none Disposition Disposition: Recovery Room Indications 53 yo female with symptomatic cholelithiasis Description of Procedure The patient was brought to the operating room and placed in the supine position with both arms extended. At this time she underwent general endotracheal anesthesia without any problems. She was given appropriate pre-operative antibiotics. Her abdomen prepped and draped in the usual sterile fashion. A timeout was called, the procedure was verified as Laparoscopic cholecystectomy, possible open, possible intra-operative cholangiogram. Surgical, nursing and anesthesia teams agreed and the procedure was begun. After injection of 0.25% Marcaine with epinephrine, a supraumbilical vertical incision was made and carried down to the fascia using S-retractors. The abdominal wall was then elevated with towel clamps and abdomen entered using the Veress needle confirming position using the saline drop test. Pneumoperitoneum was established. 5mm trocar was placed. Laparoscope was introduced. No injury from entry into the abdomen was visualized after inspection of the abdomen. Three further ports were placed under direct visualization. One 11mm in the subxiphoid region and two 5mm in the RUQ. At this time the abdomen was inspected and the gallbladder identified. The gallbladder fundus was grasped and retracted cephalad. There were omental adhesions to the gallbladder that were lysed using sharp and blunt dissection. The gallbladder infundibulum was then grasped and retracted laterally. The cystic duct and cystic artery were then identified and skeletonized. The critical view of safety was obtained. They were both then clipped twice proximally and once distally and then divided using scissors. The gallbladder was then taken off of the liver bed using electrocautery and placed in an endocatch bag and removed from the subxiphoid port. The liver bed was then inspected and no bile leak or bleeding was evident. The subxiphoid port was then closed using 0-Vicryl using the suture passer. The trocars were then removed under direct visualization and no bl eeding was present. Abdomen was desufflated. The skin was then closed using 4-0 Monocryl in a subcuticular fashion. Surgical glue was applied. Needle and sponge counts were correct x 2. At this time the patient was awoken from anesthesia and extubated having remained stable throughout the entire case. The patient was then transported to PACU in stable condition. The physician licensed sales assistant was present and scrubbed for the entire procedure. She was essential in positioning, prepping and draping the patient, retraction and exposure, driving the laparoscope, closure of the incisions and placement of the dressings. I attest to the content of the Intraoperative Record and any orders documented therein. Any exceptions are noted below.
[2024-07-06] MEDS: fentaNYL citrate PF 100 MCG/2 ML VIAL IV PRN (08:18)
--- NOTE | 2024-07-06 08:34 | Anesthesiology Progress Note ---
Date of Service July 06, 2024 Anesthesia Post Procedure Vital Signs Vital Signs: Temp Pulse Resp BP Pulse Ox O2 Del Method O2 Flow Rate 07/06/24 08:30 78 21 183/95 H 96 Room Air 07/06/24 08:20 78 23 175/98 H 97 Room Air 07/06/24 08:10 76 20 194/96 H 100 Oxymask 6 07/06/24 08:02 97.5 F L 87 14 139/100 100 Oxymask 6 07/06/24 05:52 99.0 F 92 H 20 155/102 H 98 Room Air Pain Intensity Abdomen: Pain Intensity: 5 Transfer of Care Handoff Completed per policy Notes Mental Status: alert / awake / arousable and participated in evaluation Patient Amnestic to Procedure: Yes Nausea / Vomiting: adequately controlled Pain: adequately controlled Airway Patency, RR, SpO2: stable & adequate BP & HR: stable & adequate Hydration State: stable & adequate Anesthetic Complications: no major complications apparent and Pt Satisfied with anesthetic care
[2024-07-06] MEDS: oxyCODONE/ACETAMINOPHEN 5mg/325mg TAB PO PRN ×2 (10:52→21:04)
[2024-07-06] MEDS: SIMETHICONE 80 MG CHEW PO ONE (12:54)
[2024-07-06] MEDS: KETOROLAC TROMETHAMINE 15 MG/ML VIAL ONE (14:12)
[2024-07-06] MEDS: KETOROLAC TROMETHAMINE 15 MG/ML VIAL IV ONE (14:12)
--- NOTE | 2024-07-06 14:45 | Communication Note ---
Date of Service: July 06, 2024 I was asked to evaluate the patient in the PACU. She is POD#0 laparoscopic cholecystectomy this AM. No intraop complications noted. In the recovery areas patient with complaints of abdominal pain and heart flutterings. Pain minimally controlled with percocet and simethicone. Ordered a dose of IV toradol with some additional relief. On exam patient is awake/alert and in no distress. Her abdomen is soft, non distended, expected discomfort to palpation in the RUQ, with incisions appearing c/d/i with dermabond. EKG ordered to evaluate her chest complaints. Vital signs are stable outside of some slight hypertension. She does have a history of a NSTEMI in the past and follows with cardiology. After discussions with patient she inquires if she can spend the night based on how she is feeling. She has an autistic son at home who she says would be traumatized should he witness something happen to her. We will allow her to stay for pain control and ongoing monitoring of her chest complaints. Will follow-up on EKG and ask medicine to evaluate the patient should she warrant further workup. Diet as tolerates, pain and nausea control prn, and plan on tentative dispo in the AM.
[2024-07-06] MEDS ORDERED: ALPRAZolam 0.25 MG TABLET PO PRN (16:11)
[2024-07-06] MEDS ORDERED: busPIRone 5 MG TAB PO PRN (16:11)
--- NOTE | 2024-07-06 16:24 | Hospitalist Consultation ---
Date of Consultation July 06, 2024 Assessment & Plan (1) S/P cholecystectomy: S/p laparoscopic cholecystectomy on 07/[address] Lainez Pain management, perioperative antibiotics, fluid control, and DVT PPx per the primary team Medicine was consulted for ongoing abdominal pain and heart fluttering A.m. CBC, CMP, and Troponin added (2) Fluttering heart: Resolved EKG at the time revealed NSR 82 bpm; QTc 453 Troponin ordered, pending Continuous telemetry monitoring EKG as needed for recurrence of chest pain or palpitations (3) Hx of non-ST elevation myocardial infarction (NSTEMI): Recent cardiac catheterization on 06/15/2024 was clean Plan Agree with current medical decision making: Disposition: Continued stay on MedSurg telemetry Advance diet as tolerated Thank you for allowing us to participate in the care of this patient, please reach out with any questions or concerns; we will continue to follow for a.m. labs. Supervising Physician Co-Signing Physician Notes I personally saw and examined the patient. I independently reviewed the labs, EKG, imaging, problem list, medication list, past medical history and family history. I verified all meredith points and agree with Christian Storey PA-C with the following exceptions and/or additions: 53 year old female POD#0 lap lilliana. Had heart fluttering post operatively. EKG at that time showing NSR. Not longer having fluttering when seen. HS RRR, no murmurs, Chest CTAB. Monitor on telemetry overnight. History of Present Illness Reason for Consultation: Heart palpitations, abdominal pain Requesting Physician: Shantanu Lainez DO Attending Physician: Shantanu Lainez DO History of Present Illness Winifred is a 53-year-old female with PMH of anxiety, HTN, trigeminal neuralgia, hepatic steatosis, TMJ, hypertriglyceridemia, metabolic syndrome, and NSTEMI. She presented for a laparoscopic cholecystectomy on 07/[address] Lainez. Per review of operative note, EBL was listed as 10 cc, general anesthesia was used, and there were no reported intraoperative complications. Per review of postop vitals, patient has been mildly hypertensive peaking at 175/88; vitals otherwise stable. Medicine was consulted as patient reports she was having some abdominal pain and heart fluttering. At time of consult, patient's chest palpitations have resolved. She is still having mild right upper quadrant abdominal pain. She rates the pain 2/10 at present, and reports that Toradol helped significantly with the pain. The pain was previously 10/10 and sharp after surgery. Radiation around the flank to her lower back. Movements do exacerbate the pain slightly, and because it feels like a "pulling motion". When describing her heart fluttering, she reports that after her surgery she felt like she was going to pass out. She has had chest palpitations in the past, and believes that the chest palpitations were secondary to the abdominal pain. She reports it did not feel like when she had her IA in May, but does report she was feeling anxious that her symptoms could involve her heart. At present, she has no new complaints. She has been eating and drinking okay since her surgery. She has been up to use the bathroom, and is urinating without difficulty; no BM. Patient did not take any regular morning medications today (normally she only takes potassium and Zyrtec). No supplemental oxygen at baseline. No CPAP at night. ROS: Patient endorses fatigue, chest palpitations (resolved), mild headache, and some facial flushing. Patient denies fever, chills, dizziness/lightheadedness, chest pain, pleuritic CP, SOB, cough, nausea, vomiting, changes in urinary or bowel habits, or numbness or tingling in the arms or legs. Allergies Allergy/AdvReac Type Severity Reaction Status Date / Time Bactrim Allergy Unknown STIFF NECK Verified 02/02/16 12:18 clindamycin Allergy Unknown Redness of Verified 07/06/24 05:50 Skin Penicillins Allergy Unknown Rash Verified 07/06/24 05:50 sulfamethoxazole Allergy Unknown STIFF NECK Verified 07/06/24 05:50 trimethoprim Allergy Unknown STIFF NECK Verified 07/06/24 05:50 prednisone Allergy Rash Verified 07/06/24 05:50 Tetracyclines AdvReac Mild doxy ok. Verified 07/06/24 05:50 erythromycin base AdvReac Unknown GI Verified 07/06/24 05:50 Home Medications Medication Instructions Recorded Confirmed Type acetaminophen 325 mg capsule 325 - 650 mg PO QID PRN Pain 09/19/20 07/06/24 History (Tylenol) ibuprofen 200 mg tablet (Advil) 200 mg PO Q6H PRN Pain 09/19/20 07/06/24 History buspirone 5 mg tablet 5 mg PO TID PRN anxiety #90 tabs 12/12/22 07/06/24 Rx cetirizine 10 mg tablet 5 mg PO HS 06/14/24 07/06/24 History hydrochlorothiazide 12.5 mg tablet 12.5 mg PO DAILY PRN swelling 06/14/24 07/06/24 History alprazolam 0.25 mg tablet (Xanax) 0.25 mg PO TID PRN prn 06/23/24 07/06/24 History aspirin 81 mg tablet 81 mg PO QAM 06/23/24 07/06/24 History cholecalciferol (vitamin D3) 10 30 mcg PO QAM 06/23/24 07/06/24 History mcg (400 unit) chewable tablet econazole 1 % topical cream 1 applic topical BID #30 grams 06/29/24 07/06/24 Rx potassium chloride 10 mEq 10 meq PO DAILY #90 tabs 06/29/24 07/06/24 Rx tablet,extended release (Klor-Con) oxycodone 5 mg tablet 5 - 10 mg (1 - 2 x 5 mg) PO 07/06/24 Rx [id number] PRN pain, for initial therapy, max 6 tabs per day #15 tabs Patient History Medical History (Updated 07/07/24 @ 13:56 by Jason Cooper MD) Elevated blood pressure, situational Obesity Abnormal brain MRI 'single sub-cm focus of FLAIR hyperintensity within the white matter of the L frontal lobe of doubtful clinical significance' per Neuro note 10/31/22 "they found a nodule" monitoring, followed with Dr Banda Hypoglycemia pt states has hx of hypoglycemia and near-syncopal episodes as a result Metabolic syndrome History of gastric ulcer Anxiety pt Rx xanax during 06/16/24 ED visit for 'chest pains' History of syncope most recently 06/14/24 during ambulance ride to ED (following Nitro spray) TMJ (temporomandibular joint disorder) patient denies Hepatic steatosis Hypertriglyceridemia Hypokalemia noted in ED 06/14/24; resolved upon D/C; pt taking supplement Non-ST elevated myocardial infarction (non-STEMI) 06/14/2024 [facility] ED with chest pain; cath normal; per cardio, 'likely initial sx r/t cholelithiasis with resultant demand ischemia" History of trigeminal neuralgia no issues currently Prediabetes Candidal intertrigo Arthralgia of multiple sites Acholic stool Surgical History (Updated 07/07/24 @ 13:50 by Jason Cooper MD) Hx laparoscopic cholecystectomy (07/06/24) Laparoscopic Cholecystectomy(Not Applicable) - Shantanu Lainez, DO History of cardiac cath 06/15/2024 [facility]: normal S/P [facility] [place] History of appendectomy (10/13/12) H/O dilation and curettage (10/13/12) Family History Mother Diabetes Uterine cancer Grandfather (Paternal) Myocardial infarction Father Hypertension Heart disease Son Diabetes Bicuspid aortic valve OCD (obsessive compulsive disorder) Denies family history of Ovarian cancer Prostate cancer Breast cancer Lung cancer Colorectal cancer Stroke Social History Smoking Status: Unknown if ever smoked Second Hand Exposure: No; Do You Dip or Chew Tobacco: No; Hx Alcohol Use: No Hx Substance Use: No Preferred Language: Maltese Communication Ability: Effective Visual Impairment: Limited Hearing Ability: Normal 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 Beliefs That Will Affect Care: None marital status: Current Living Situation: Spouse and Family Current Living Situation Comment: and son current occupational status: unemployed How many Children do You have: 4 Feels Safe at Home: Yes Childhood Exposure to Second-Hand Smoke: No caffeine: Yes during the past year weight has: decreased > 10 lbs Dental Care, Regularly: Yes Physical Activity Frequency: Daily Seatbelt Use: always Sunscreen Use: Yes Assistive Devices: Glasses Review of Systems Review of Systems: See HPI above Physical Exam Physical Exam: General: no acute distress; pleasant affect; non-toxic appearing; well- nourished; cooperative HEENT: normocephalic, atraumatic; no scleral icterus; PERRLA; vision and hearing grossly intact Neck: supple; no lymphadenopathy; trachea midline Skin: warm, dry without signs of tenting; no cyanosis; no rashes, bruising, lesions, or erythema noted CV: chest wall NTP; RRR; S1/S2 normal; no murmurs/rubs/gallops; pulses intact and symmetric at radial, DP, and PT Lungs: no acute respiratory distress; symmetrical chest wall expansion; clear breath sounds across all lung raza w/o adventitious sounds; no wheezing ABD: Soft; RUQ is mildly TTP; laparoscopic incisions without erythema or drainage; BS present; no rebound/guarding; no distention MSK: no tics or fasciculations; no edema noted in the LEs b/l, nonerythematous; patient demonstrates ability wiggle toes bilaterally Neuro: A&Ox3; normal mood and affect; fluent speech; no focal deficits; sensation grossly intact and symmetric in the LEs b/l assessed via light touch Results & Data Results & Data Vital Signs (Past 12 Hours) Vital Signs Temp Pulse Resp BP Pulse Ox O2 Del Method O2 Flow Rate 07/06/24 15:50 36.5 C 83 18 136/86 97 Room Air 07/06/24 13:55 36.6 C 82 20 152/80 H 95 Room Air 07/06/24 12:55 36.5 C 88 20 147/88 H 96 Room Air 07/06/24 11:55 36.6 C 79 17 157/85 H 97 Room Air 07/06/24 10:55 36.4 C L 81 15 150/88 H 96 Room Air 07/06/24 09:55 36.5 C 78 15 152/80 H 95 Room Air 07/06/24 09:25 36.3 C L 84 16 162/80 H 95 Room Air 07/06/24 08:55 36.1 C L 77 17 175/88 H 97 Room Air 07/06/24 08:50 37.2 C 75 20 161/80 H 95 Room Air 07/06/24 08:40 83 17 165/94 H 96 Room Air 07/06/24 08:30 78 21 183/95 H 96 Room Air 07/06/24 08:20 78 23 175/98 H 97 Room Air 07/06/24 08:10 76 20 194/96 H 100 Oxymask 6 07/06/24 08:02 36.4 C L 87 14 139/100 100 Oxymask 6 07/06/24 05:52 37.2 C 92 H 20 155/102 H 98 Room Air Laboratory Results Abnormal lab results 07/06/24 Range/Units 05:46 POC Glucose 110 H (70-99) mg/dl PG Care Time/CCT Total # of Minutes Spent Total Time Spent with Patient: Total time spent is greater than 50% in coordination of care (as documented) at patient's floor/unit and/or counseling patient: Coding [place] [address] IN/OBS CONSULT LVL 4,60M Patient Type Established Medical Decision Making Moderate Complexity Diagnoses S/P cholecystectomy Z90.49 Fluttering heart I49.8 Hx of non-ST elevation myocardial infarction (NSTEMI) I25.2
[2024-07-06] MEDS: SODIUM CHLORIDE 0.9% 1,000 ML IV SCH (16:36)
[2024-07-06] MEDS: CETIRIZINE HCL 10 MG TABLET PO SCH (19:47)
[2024-07-07 06:37] LABS: Basophils # (auto) 0.03 K/uL (0.00-0.20); Basophils % (auto) 0.4 %; Eosinophils # (auto) 0.01 K/uL (0.00-0.50); Eosinophils % (auto) 0.1 %; Hematocrit (blood only) 38.5 % (37.0-47.0); Hemoglobin 13.1 g/dl (12.0-16.0); Immature Granulocytes # (auto) 0.03 K/uL (0.01-0.20); Immature Granulocytes % (auto) 0.4 %; Lymphocytes # (auto) 0.99 K/uL (1.20-3.40); Lymphocytes % (auto) 12.1 %; Mean Corpuscular Hemoglobin 31.7 pg (25.0-34.0); Mean Corpuscular Volume 93.2 fL (80.0-100.0); Mean Platelet Volume 10.4 fL (9.4-12.4); Monocytes # (auto) 0.64 K/uL (0.11-0.59); Monocytes % (auto) 7.9 %; Neutrophils # (auto) 6.45 K/uL (1.40-6.50); Neutrophils % (auto) 79.1 %; Platelet Count 248 K/uL (130-400); RDW Coefficient of Variation 12.6 % (11.5-14.5); RDW Standard Deviation 43.4 fL (36.4-46.3); Red Blood Count 4.13 M/uL (4.20-5.40); White Blood Count 8.15 K/ul (4.8-10.8)
[2024-07-07 06:51] LABS: Albumin Globulin Ratio 1.5 (0.9-2); BUN Creatinine Ratio 10.6 (10-20); Bilirubin,Total 0.8 mg/dl (0.2-1.0); Calcium 9.3 mg/dl (8.6-10.3); Creatinine Clr Calc Pharmacy 86.1 ml/min; Est GFR (African American) 90.7 ml/min; Est GFR (Non-African American) 78.2 ml/min; Globulin 2.7 gm/dl (2.5-4.0); Potassium 3.7 mmol/L (3.5-5.1); Total Protein 6.7 gm/dl (6.0-8.3)
[2024-07-07 06:57] LABS: Troponin I High Sensitivity 5.2 pg/ml (0-14)
[2024-07-07] MEDS: ASPIRIN 81 MG ECTAB PO SCH (07:45)
--- NOTE | 2024-07-07 07:48 | Surgery Progress Note ---
Date of Service July 07, 2024 Assessment & Plan (1) S/P cholecystectomy: Plan: POD#1 lap lilliana Vitals are stable. wbc 8, hbg 13, tb 0.8, AST 586 alt 397- likely up from post surgical state Pt reports abdominal pain is controlled. Her cardiac like complaints have resolved She will advance to a regular diet Plan on dispo to home today with plans to f/u in the office within 2 weeks time Appreciate the hospitalists assisting us with her care Admission and Anticipated Discharge Date Admission Date: July 06, 2024 Subjective Patient feeling well this morning. Tolerating diet thus far. Pain overall controlled. + voiding. Chest/heart complaints have resolved Physical Exam Physical Exam: awake/alert, no distress Respiratory: normal respiratory effort Gastrointestinal (Abdomen): Inspection/Auscultation: + abdominal surgical incision (c/d/i with skin glue, no signs of infection); abdomen not distended Percussion/Palpation: + abdomen tender (mild expected anahi incisional discomfort to palpation) and abdomen soft Results & Data Vital Signs (Past 12 Hours) Vital Signs Temp Pulse Pulse Resp BP Pulse Ox O2 Del Method 07/07/24 02:13 99.0 F 72 18 123/80 96 Room Air 07/06/24 23:33 63 07/06/24 22:36 98.8 F 79 18 131/80 95 Room Air PG Care Time/CCT Total # of Minutes Spent Total Time Spent with Patient: Total time spent is greater than 50% in coordination of care (as documented) at patient's floor/unit and/or counseling patient: Coding Level of Care Code 92118 Post Operative Follow-Up Diagnoses S/P cholecystectomy Z90.49
[2024-07-07 07:56] VITALS: RESP 16; TEMP 98.4; O2SAT 94
[2024-07-07 08:15] VITALS: BP 123/80; PULSE 64
[2024-07-07] MEDS ORDERED: NON-FORMULARY MEDICATION (Aspirin 81 mg Tablet) PO SCH (09:00)
--- NOTE | 2024-07-07 13:02 | Electrocardiogram Report ---
Test Reason : Blood Pressure : */* mmHG Vent. Rate : 82 BPM Atrial Rate : 82 BPM P-R Int : 150 ms QRS Dur : 88 ms QT Int : 388 ms P-R-T Axes : * 195 164 degrees QTcB Int : 453 ms Normal sinus rhythm Possible Anterolateral infarct (cited on or before 20-May-2024) Abnormal ECG When compared with ECG of 16-Jun-2024 10:50, QRS axis Shifted left T wave inversion now evident in Lateral leads Confirmed by Will Martinez ([id number]) on 07/07/2024 1:01:52 PM Referred By: Shantanu Lainez Confirmed By: Will Martinez
== END 2024-07-07 09:32 | disposition home or self-care (01) ==
LOC: ASU 05:20 → 2N 05:20